=== PATIENT | male | born 1960 | race Caucasian/White ===

== ENCOUNTER 2017-03-04 15:11 | Inpatient (IN) | payer OTHER ==
[~2017-03-04] VITALS: Ht 170.2 cm; Wt 85.3 kg
[~2017-03-04 15:11] MED LIST: CALCTAB5 PO; CRG40 PO; GAS X PO; LSX20 PO; PANT40TA PO; RIFA200T2 PO; SPIR50TA2 PO
[2017-03-04] MEDS ORDERED: SODIUM CHLORIDE 0.9% 1000ML 1,000 ML IV STA (15:22)
--- NOTE | 2017-03-04 15:59 | EMERGENCY ROOM VISIT NOTE ---
History Report prepared by Zack: Genaro Reyes Under the Supervision of: Dr. Martinez Winkler M.D. First contact with patient: 15:19 Chief Complaint: STROKE SYMPTOMS Stated Complaint: NUMBNESS ON RT SIDE History of Present Illness The patient is a 57 year old male who presents to the Emergency Room with complaints of improving right sided numbness starting this morning around 1000. He states that he has right leg, right arm, and the right side of his face was numb, and he denies any pain on that side. The patient states he went up to go to the bathroom, and he thought that he pinched a nerve. He states that he is able to walk normally. The patient has a history of high blood pressure, cirrhosis, and a cholecystectomy. He states that he drinks around 7 beers per night, and his last drink was last night. The patient denies any fevers, chills , cough, and congestion. Source of History: patient Onset: 1000 Position: other (right side) Quality: numbness Timing: other (improving) Associated Symptoms: No fevers, No chills, No cough Note: Associated symptoms: Right leg, right arm, and right face numbness Review of Systems See HPI for pertinent positives and negatives. A total of ten systems were reviewed and were otherwise negative. Past Medical & Surgical Medical Problems: (1) Cirrhosis (2) High blood pressure (3) HTN (hypertension) (4) Hypertensive urgency (5) Paresthesia Surgical Problems: (1) History of cholecystectomy (2) Hx of cholecystectomy Social History Alcohol Use: heavy Marital Status: Housing Status: lives with family Occupation Status: retired Current/Historical Medications Scheduled Atenolol (Tenormin), 100 MG PO DAILY Furosemide (Lasix), 20 MG PO DAILY Potassium (Potassium), 99 MG PO DAILY Allergies Coded Allergies: Iodinated Diagnostic Agents (Verified Allergy, Unknown, [place] like arm was on fire, 03/04/17) Iodine (Verified Allergy, Unknown, 05/26/09) Physical Exam Vital Signs Date Time Temp Pulse Resp B/P (MAP) Pulse Ox O2 Delivery O2 Flow Rate FiO2 03/04/17 18:00 83 25 213/109 99 Room Air 03/04/17 17:25 84 29 211/114 96 Room Air 03/04/17 17:20 84 03/04/17 17:16 258/133 03/04/17 17:10 86 283/131 03/04/17 16:06 90 19 256/139 97 Room Air 03/04/17 15:13 36.9 89 18 247/129 98 Room Air Physical Exam GENERAL: Awake, alert, well-appearing, in no distress HENT: Normocephalic, atraumatic. Oropharynx unremarkable. EYES: Normal conjunctiva. Sclera non-icteric. NECK: Supple. No nuchal rigidity. FROM. No JVD. RESPIRATORY: Clear to auscultation. CARDIAC: Regular rate, normal rhythm. Extremities warm and well perfused. Pulses equal. ABDOMEN: Soft, non-distended. No tenderness to palpation. No rebound or guarding. No masses. RECTAL: Deferred. MUSCULOSKELETAL: Chest examination reveals no tenderness. The back is symmetrical on inspection without obvious abnormality. There is no CVA tenderness to palpation. No joint edema. LOWER EXTREMITIES: Calves are equal size bilaterally and non-tender. No edema. No discoloration. NEURO: Normal sensorium. No sensory or motor deficits noted. 5/5 strength and SILT x 4 ext. Normal cerebellar function with [id number], alternating palms , [id number] SKIN: No rash or jaundice noted. Medical Decision & Procedures ER Provider Diagnostic Interpretation: Radiology results as stated below per my review and radiologist interpretation: CT OF THE HEAD WITHOUT CONTRAST CLINICAL HISTORY: Right arm, leg and face numbness. COMPARISON STUDY: Head CT September 10, 2007 and MRI of the brain September 11, 2007. CT DOSE: 638.56 mGycm TECHNIQUE: Helical axial images of the head were obtained without IV contrast. Automated exposure control was utilized for the study. A dose lowering technique was utilized adhering to the principles of ALARA. FINDINGS: No acute intracranial hemorrhage, midline shift or mass effect is present. Ventricular system is normal. Basilar cisterns are patent. There are no extra-axial collections. There are no CT findings to suggest acute dural sinus thrombosis or acute territorial infarct. There are moderate white matter hypodensities which have increased since exam of September 10, 2007. A 5 mm right thalamic hypodensity is new since prior exam. Visualized portions of the sinuses and mastoid air cells are clear. There are no significant calvarial abnormality. IMPRESSION: 1. No acute intracranial hemorrhage or mass effect. 2. Moderate white matter hypodensities which have increased since head CT of September 10, 2007. These are nonspecific and may reflect small vessel disease although are greater than expected for age. 3. Age indeterminate but likely old lacunar infarct within the right thalamus. Electronically signed by: Davidson Ann M.D. 03/04/2017 4:31 PM Dictated Date/Time: 03/04/2017 4:25 PM CHEST ONE VIEW PORTABLE CLINICAL HISTORY: 57 years-old Male presenting with ABDOMINAL PAIN/GI. TECHNIQUE: Portable upright AP view of the chest was obtained. COMPARISON: 07/10/2007. FINDINGS: Atherosclerosis of aortic arch. Cardiac silhouette normal in size. Lungs and pleural spaces clear. Osseous structures normal. Upper abdomen normal. IMPRESSION: 1. No acute cardiopulmonary disease. Electronically signed by: Teddy Smith M.D. 03/04/2017 5:11 PM Dictated Date/Time: 03/04/2017 5:10 PM Laboratory Results 03/04/17 15:44 Red Blood Count 4.78, Mean Corpuscular Volume 93.3, Mean Corpuscular Hemoglobin 34.1, Mean Corpuscular Hemoglobin Concent 36.5, Mean Platelet Volume 11.3, Neutrophils (%) (Auto) 68.8, Lymphocytes (%) (Auto) 16.9, Monocytes (%) (Auto) 11.0, Eosinophils (%) (Auto) 2.6, Basophils (%) (Auto) 0.5, Neutrophils # (Auto ) 4.18, Lymphocytes # (Auto) 1.03, Monocytes # (Auto) 0.67, Eosinophils # (Auto ) 0.16, Basophils # (Auto) 0.03 03/04/17 15:44 Test 03/04/17 15:44 03/04/17 16:05 White Blood Count 6.08 K/uL (4.8-10.8) Red Blood Count 4.78 M/uL (4.7-6.1) Hemoglobin 16.3 g/dL (14.0-18.0) Hematocrit 44.6 % (42-52) Mean Corpuscular Volume 93.3 fL (80-100) Mean Corpuscular Hemoglobin 34.1 pg (25-34) Mean Corpuscular Hemoglobin Concent 36.5 g/dl (32-36) Platelet Count 98 K/uL (130-400) Mean Platelet Volume 11.3 fL (7.4-10.4) Neutrophils (%) (Auto) 68.8 % Lymphocytes (%) (Auto) 16.9 % Monocytes (%) (Auto) 11.0 % Eosinophils (%) (Auto) 2.6 % Basophils (%) (Auto) 0.5 % Neutrophils # (Auto) 4.18 K/uL (1.4-6.5) Lymphocytes # (Auto) 1.03 K/uL (1.2-3.4) Monocytes # (Auto) 0.67 K/uL (0.11-0.59) Eosinophils # (Auto) 0.16 K/uL (0-0.5) Basophils # (Auto) 0.03 K/uL (0-0.2) RDW Standard Deviation 42.4 fL (36.4-46.3) RDW Coefficient of Variation 12.4 % (11.5-14.5) Immature Granulocyte % (Auto) 0.2 % Immature Granulocyte # (Auto) 0.01 K/uL (0.00-0.02) Platelet Estimate DECREASED Prothrombin Time 12.5 SECONDS (9.0-12.0) Prothromb Time International Ratio 1.2 (0.9-1.1) Anion Gap 10.0 mmol/L (3-11) Estimated GFR () 76.6 Estimated GFR (Non- 66.1 BUN/Creatinine Ratio 7.3 (10-20) Calcium Level 9.3 mg/dl (8.5-10.1) Total Bilirubin 3.7 mg/dl (0.2-1) Direct Bilirubin 1.3 mg/dl (0-0.2) Aspartate Amino Transf (AST/SGOT) 63 U/L (15-37) Alanine Aminotransferase (ALT/SGPT) 29 U/L (12-78) Alkaline Phosphatase 275 U/L (45-117) Ammonia 39.2 umol/L (11-32) Total Protein 6.9 gm/dl (6.4-8.2) Albumin 2.2 gm/dl (3.4-5.0) Triglycerides Level 103 mg/dl (0-150) Cholesterol Level 139 mg/dl (0-200) HDL Cholesterol 61 mg/dl LDL Cholesterol, Calculated 57 mg/dl VLDL Cholesterol, Calculated 21 mg/dl Cholesterol/HDL Ratio 2.3 Lipase 393 U/L (73-393) Thyroid Stimulating Hormone (TSH) 3.000 uIu/ml (0.300-4.500) Ethyl Alcohol mg/dL < 3.0 mg/dl (0-3) Urine Color DK YELLOW Urine Appearance CLEAR (CLEAR) Urine pH 5.0 (4.5-7.5) Urine Specific [place] 1.016 (1.000-1.030) Urine Protein 3+ (NEG) Urine Glucose (UA) NEG (NEG) Urine Ketones NEG (NEG) Urine Occult Blood 2+ (NEG) Urine Nitrite NEG (NEG) Urine Bilirubin NEG (NEG) Urine Urobilinogen NEG (NEG) Urine Leukocyte Esterase NEG (NEG) Urine WBC (Auto) 1-5 /hpf (0-5) Urine RBC (Auto) 10-30 /hpf (0-4) Urine Hyaline Casts (Auto) 1-5 /lpf (0-5) Urine Epithelial Cells (Auto) 5-10 /lpf (0-5) Urine Bacteria (Auto) NEG (NEG) Laboratory results reviewed by me Medications Administered Medications (Trade) Dose Ordered Sig/Jos Route Start Time Stop Time Status Last Admin Dose Admin Sodium Chloride 1,000 ml @ 999 mls/hr Q1H1M STAT IV 03/04/17 15:22 03/04/17 16:22 DC 03/04/17 17:18 999 MLS/HR Labetalol HCl (Normodyne IV) 20 mg NOW STAT IV 03/04/17 16:28 03/04/17 16:30 DC 03/04/17 17:16 20 MG Aspirin (Aspirin Chew) 81 mg ONE STAT PO 03/04/17 18:40 03/04/17 18:44 DC 03/04/17 18:53 81 MG ECG Indication: other (numbness) Rate (beats per minute): 82 Rhythm: normal sinus Findings: no acute ischemic change, other (Normal [place]) ED Course 1519: The patient was evaluated in room C5. A complete history and physical exam was performed. 1522: Sodium Chloride 1000 ml @ 999 mls/hr IV 1628: Labetalol HCl 20mg IV 1735: I reevaluated the patient, and he is feeling better. I discussed the treatment plan with him, and he was agreeable to being evaluated by the hospitalist. 1751: I discussed the patient with Moisés Mcdaniel - he will evaluate the patient for further treatment. Medical Decision I reviewed the patient's past medical history, medications, and the nursing notes as described above. Differential Diagnoses include: Stroke, TIA, radiculopathy, dehydration, electrolyte abnormality, liver disease, and neuropathy The patient is a 57-year-old gentleman with a past medical history of alcoholic cirrhosis, and portal hypertension on Nadolol and rifaximin presents to the emergency department with right leg, arm, face numbness that began this morning around 10 AM per history of present illness. On arrival the patient is in no acute distress, afebrile with significant hypertension with systolic to 250s/ 110s. On arrival patient reports his numbness is mostly resolved although had some residual subjective right leg numbness. Denies any pain associated with this. On exam he has no focal deficits. He is able to ambulate without difficulty but does report some awkwardness with his gait. Patient has a question of a contrast allergy and thus CTA deferred. CT head shows question of an old right thalamic infarct but otherwise no new stroke. Labs otherwise unremarkable. Patient was given labetalol with subsequent reduction in his blood pressure to a systolic of 200s. The patient's symptoms may have been due to his extremely elevated blood pressure, however admission for complete stroke/ tia rule out is appropriate. Case was discussed with Moisés Mcdaniel hospitalist, who would minute the patient for further management. Medication Reconcilliation Current Medication List: was personally reviewed by me Blood Pressure Screening Patient's blood pressure: Elevated blood pressure Managed by the hospitalist Consults Time Called: 1739 Consulting Physician: Moisés Mcdaniel Returned Call: 1751 I discussed the patient with Moisés Mcdaniel - he will evaluate the patient for further treatment. Impression Primary Impression: Numbness Scribe Attestation The scribe's documentation has been prepared under my direction and personally reviewed by me in its entirety. I confirm that the note above accurately reflects all work, treatment, procedures, and medical decision making performed by me. Departure Information Dispostion Being Evaluated By Hospitalist Referrals No Doctor, Assigned (PCP) Patient Instructions My [facility]
[2017-03-04 16:15] LABS: INR 1.2 (0.9-1.1); PROTHROMBIN TIME (PATIENT) 12.5 SECONDS (9.0-12.0)
[2017-03-04 16:20] LABS: ALT/SGPT 29 U/L (12-78); BLOOD UREA NITROGEN 9 mg/dl (7-18); BUN/CREATININE RATIO 7.3 (10-20); CALCIUM 9.3 mg/dl (8.5-10.1); CARBON DIOXIDE 24 mmol/L (21-32); CHLORIDE 106 mmol/L (98-107); CREATININE 1.21 mg/dl (0.60-1.40); GLUCOSE 110 mg/dl (70-99); POTASSIUM 3.8 mmol/L (3.5-5.1); SODIUM 140 mmol/L (136-145)
[2017-03-04 16:23] LABS: URINE APPEARANCE CLEAR (CLEAR); URINE COLOR DK YELLOW; URINE NITRITE NEG (NEG); URINE SPECIFIC GRAVITY 1.016 (1.000-1.030); UROBILINOGEN NEG (NEG); ZZUR CULT IF INDIC CLEAN CATCH NO
[2017-03-04 16:24] LABS: MANUAL MICROSCOPIC REQUIRED? NO; REVIEW REQ? NO
[2017-03-04 16:25] LABS: URINE BILIRUBIN NEG (NEG)
[2017-03-04 16:25] LABS: ALKALINE PHOSPHATASE 275 U/L (45-117); AST/SGOT 63 U/L (15-37)
[2017-03-04 16:26] LABS: HEMATOCRIT 44.6 % (42-52); MEAN CELL VOLUME 93.3 fL (80-100); MEAN CORPUSCULAR HEMOGLOBIN 34.1 pg (25-34); MEAN CORPUSCULAR HGB CONC 36.5 g/dl (32-36); MEAN PLATELET VOLUME 11.3 fL (7.4-10.4); PLATELET COUNT 98 K/uL (130-400); RED BLOOD COUNT 4.78 M/uL (4.7-6.1); WHITE BLOOD COUNT 6.08 K/uL (4.8-10.8)
[2017-03-04] MEDS ORDERED: LABETALOL HCL IV 5 MG/ML 20ML IV STA (16:28)
--- NOTE | 2017-03-04 16:33 | DIAGNOSTIC IMAGING REPORT ---
CT OF THE HEAD WITHOUT CONTRAST CLINICAL HISTORY: Right arm, leg and face numbness. COMPARISON STUDY: Head CT September 10, 2007 and MRI of the brain September 11, 2007. CT DOSE: 638.56 mGycm TECHNIQUE: Helical axial images of the head were obtained without IV contrast. Automated exposure control was utilized for the study. A dose lowering technique was utilized adhering to the principles of ALARA. FINDINGS: No acute intracranial hemorrhage, midline shift or mass effect is present. Ventricular system is normal. Basilar cisterns are patent. There are no extra-axial collections. There are no CT findings to suggest acute dural sinus thrombosis or acute territorial infarct. There are moderate white matter hypodensities which have increased since exam of September 10, 2007. A 5 mm right thalamic hypodensity is new since prior exam. Visualized portions of the sinuses and mastoid air cells are clear. There are no significant calvarial abnormality. IMPRESSION: 1. No acute intracranial hemorrhage or mass effect. 2. Moderate white matter hypodensities which have increased since head CT of September 10, 2007. These are nonspecific and may reflect small vessel disease although are greater than expected for age. 3. Age indeterminate but likely old lacunar infarct within the right thalamus. Electronically signed by: Davidson Ann M.D. 03/04/2017 4:31 PM Dictated Date/Time: 03/04/2017 4:25 PM
[2017-03-04 16:55] LABS: BASO % 0.5 %; BASO ABS # 0.03 K/uL (0-0.2); COMPLETE YES; EOS % 2.6 %; IG% 0.2 %; LYMPH % 16.9 %; LYMPH ABS # 1.03 K/uL (1.2-3.4); NEUT % 68.8 %; PLT ESTIMATE DECREASED
[2017-03-04] MEDS ORDERED: POTA99TA PO (17:11)
[2017-03-04] MEDS ORDERED: FURO-85 PO (17:11)
[2017-03-04] MEDS ORDERED: ATEN50TA8 PO (17:11)
--- NOTE | 2017-03-04 17:12 | DIAGNOSTIC IMAGING REPORT ---
CHEST ONE VIEW PORTABLE CLINICAL HISTORY: 57 years-old Male presenting with ABDOMINAL PAIN/GI. TECHNIQUE: Portable upright AP view of the chest was obtained. COMPARISON: 07/10/2007. FINDINGS: Atherosclerosis of aortic arch. Cardiac silhouette normal in size. Lungs and pleural spaces clear. Osseous structures normal. Upper abdomen normal. IMPRESSION: 1. No acute cardiopulmonary disease. Electronically signed by: Teddy Smith M.D. 03/04/2017 5:11 PM Dictated Date/Time: 03/04/2017 5:10 PM
[2017-03-04] MEDS ORDERED: ASPIRIN 81 MG CHEW PO STA (18:40)
[2017-03-04] MEDS ORDERED: ACETAMINOPHEN 325 MG TAB PO PRN (19:00)
[2017-03-04] MEDS ORDERED: PHARMACIST DISCHARGE MED REC CONSULT PRN ×3 (19:00→19:15)
[2017-03-04 19:17] LABS: CHOLESTEROL/HDL RATIO 2.3
[2017-03-04] MEDS ORDERED: LORAZEPAM 1 MG TAB PO PRN (19:30)
[2017-03-04 19:57] VITALS: BP 258/119; PULSE 89; TEMP 36.8; O2SAT 99; Ht 170.2 cm; Wt 85.3 kg
--- NOTE | 2017-03-04 20:04 | DIAGNOSTIC IMAGING REPORT ---
CAROTID DOPPLER NECK ART CLINICAL HISTORY: 57 years-old Male presenting with possible TIA. TECHNIQUE: Real-time grayscale and color and spectral Doppler ultrasound imaging of the bilateral carotid arteries was performed. NASCET criteria was used in evaluating this study. COMPARISON: None. FINDINGS: Right: Common carotid: Patent. Peak systolic velocity 77 cm/s. Internal carotid artery: Patent. Peak systolic velocity 46 cm/s. Systolic ratio: 0.6. External carotid artery: Patent. Peak systolic velocity 82 cm/s. Left: Common carotid: Patent. Peak systolic velocity 96 cm/s. Internal carotid artery: Patent. Peak systolic velocity 42 cm/s. Systolic ratio: 0.44. External carotid artery: Patent. Peak systolic velocity 73 cm/s. Bilateral antegrade flow within the vertebral arteries. Reference ranges: Stenosis measurements are compared to reference velocity parameters. Normal ICA peak systolic velocity less than 125 cm/s. Normal ICA peak systolic velocity to common carotid artery velocity ratio is less than 2: less than 2 equates to less than 50% stenosis, 2-4 equates to 50-69% stenosis, greater than 4 equates to greater than or equal to 70% stenosis. Normal ICA end-diastolic velocity less than 40. Blood pressure Brachial: Right: 222/108 mmHg, Left: 237/108 mmHg. IMPRESSION: 1. No hemodynamically significant stenosis seen within the carotid arteries. 2. Significantly elevated blood pressure. The report will be called/faxed according to standard departmental protocol. Electronically signed by: Teddy Smith M.D. 03/04/2017 8:03 PM Dictated Date/Time: 03/04/2017 8:01 PM
--- NOTE | 2017-03-04 20:13 | History and Physical ---
History & Physical Date & Time of Service: Mar 04, 2017 at 19:15 Chief Complaint: Numbness On Rt Side Primary Care Physician: No Doctor, Assigned History of Present Illness Source: patient, spouse Pt is 57yo M with PMH HTN, alcoholic cirrhosis who presented to ER with c/o R arm and R leg paresthesias started this morning around 10:00. States intense paresthesias lasted 1-2 minutes, but has continued with faint paresthesias. Reports started feeling in his R leg and then R arm. Reports paresthesias to entire R leg and entire R arm, hand & fingers. Denies any injury/trauma or prolonged sitting/lying on R side. Denies weakness of extremities. Reports hx HTN and typically "170-190's systolic, 90 diastolic". States takes atenolol 100mg daily and lasix 20mg daily and OTC potassium supplement. [facility] and states in past PCP discussed HTN med changes but pt has been resistant. Pt reports drinks 3-7 beers daily. Hasn't drank ETOH today. Denies other drug use. Denies fever/chills, diaphoresis, N/V/D/C, TORRES, dizziness, syncope, vision changes, neck pain, back pain, speech changes, memory problems, facial drooping , trouble with gait, LOC, CP, SOB, orthopnea, palpitations, cough, sore throat, choking, otalgia, rhinorrhea, abdominal pain, extremity edema, rashes, urinary symptoms. In ER BP initially 256/139 given labetalol 20mg IV and BP 213/109. P:90, R:20, pulse ox:97% on RA. Afebrile. No leukocytosis. ETOH <3. No leukocytosis. Negative troponin. CXR: negative. CT head: no acute hemorrhage, Age indeterminate but likely old lacunar infarct within the right thalamus. 2008: pt with hx alcoholic hepatitis, gallstone pancreatitis with variceal bleed , cholecystectomy and then hx seizure. Family History FH: cancer MOTHER (abdominal (pt unsure source)) Hypertension FATHER BROTHER Social History Smoking Status: Never Smoker Smokeless Tobacco Use: Yes Alcohol Use: 3-7 beers daily Drug Use: none Marital Status: Housing status: lives with significant other Occupational Status: retired Immunizations History of Influenza Vaccine: No History of Tetanus Vaccine?: Yes Tetanus Immunization Date: Jun 11, 2006 History of Pneumococcal: Yes Pneumococcal Date: Jun 11, 2006 History of Hepatitis B Vaccine: No Multi-Drug Resistant Organisms History of MDRO: No Allergies Coded Allergies: Iodinated Diagnostic Agents (Verified Allergy, Unknown, Cook Sta like arm was on fire, 03/04/17) Iodine (Verified Allergy, Unknown, 05/26/09) Home Medications Scheduled Atenolol (Tenormin), 100 MG PO DAILY Furosemide (Lasix), 20 MG PO DAILY Potassium (Potassium), 99 MG PO DAILY Review of Systems See HPI for pertinent positives & negatives. All other systems reviewed and were otherwise negative Physical Exam Vital Signs Date Time Temp Pulse Resp B/P (MAP) Pulse Ox O2 Delivery O2 Flow Rate FiO2 03/04/17 18:00 83 25 213/109 99 Room Air 03/04/17 17:25 84 29 211/114 96 Room Air 03/04/17 17:20 84 03/04/17 17:16 258/133 03/04/17 17:10 86 283/131 03/04/17 16:06 90 19 256/139 97 Room Air 03/04/17 15:13 36.9 89 18 247/129 98 Room Air General Appearance: WD/WN, no apparent distress Head: normocephalic, atraumatic Eyes: normal inspection, PERRL, EOMI, sclerae normal ENT: hearing grossly normal, pharynx normal Neck: supple, no JVD, no carotid bruits, trachea midline, + pertinent finding ( non-tender, ROM intact) Respiratory/Chest: lungs clear, normal breath sounds, no respiratory distress, no accessory muscle use Cardiovascular: regular rate, rhythm, no edema, no murmur Abdomen/GI: normal bowel sounds, non tender, soft Extremities/Musculoskelatal: normal inspection, normal capillary refill, no pedal edema, normal range of motion, non-tender, + pertinent finding (strength 5 /5 throughout bilaterally. 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, no motor/sensory deficits, alert, normal mood/affect, oriented x 3, + pertinent finding (no facial drooping, no aphasia, no weakness) Skin: normal color, warm/dry, no rash Diagnostics Laboratory Results Results Past 24 Hours Test 03/04/17 15:44 03/04/17 16:05 Range/Units White Blood Count 6.08 4.8-10.8 K/uL Red Blood Count 4.78 4.7-6.1 M/uL Hemoglobin 16.3 14.0-18.0 g/dL Hematocrit 44.6 42-52 % Mean Corpuscular Volume 93.3 80-100 fL Mean Corpuscular Hemoglobin 34.1 25-34 pg Mean Corpuscular Hemoglobin Concent 36.5 32-36 g/dl Platelet Count 98 130-400 K/uL Mean Platelet Volume 11.3 7.4-10.4 fL Neutrophils (%) (Auto) 68.8 % Lymphocytes (%) (Auto) 16.9 % Monocytes (%) (Auto) 11.0 % Eosinophils (%) (Auto) 2.6 % Basophils (%) (Auto) 0.5 % Neutrophils # (Auto) 4.18 1.4-6.5 K/uL Lymphocytes # (Auto) 1.03 1.2-3.4 K/uL Monocytes # (Auto) 0.67 0.11-0.59 K/uL Eosinophils # (Auto) 0.16 0-0.5 K/uL Basophils # (Auto) 0.03 0-0.2 K/uL RDW Standard Deviation 42.4 36.4-46.3 fL RDW Coefficient of Variation 12.4 11.5-14.5 % Immature Granulocyte % (Auto) 0.2 % Immature Granulocyte # (Auto) 0.01 0.00-0.02 K/uL Platelet Estimate DECREASED Prothrombin Time 12.5 9.0-12.0 SECONDS Prothromb Time International Ratio 1.2 0.9-1.1 Sodium Level 140 136-145 mmol/L Potassium Level 3.8 3.5-5.1 mmol/L Chloride Level 106 98-107 mmol/L Carbon Dioxide Level 24 21-32 mmol/L Anion Gap 10.0 3-11 mmol/L Blood Urea Nitrogen 9 7-18 mg/dl Creatinine 1.21 0.60-1.40 mg/dl Estimated GFR () 76.6 Estimated GFR (Non- 66.1 BUN/Creatinine Ratio 7.3 10-20 Random Glucose 110 70-99 mg/dl Calcium Level 9.3 8.5-10.1 mg/dl Total Bilirubin 3.7 0.2-1 mg/dl Direct Bilirubin 1.3 0-0.2 mg/dl Aspartate Amino Transf (AST/SGOT) 63 15-37 U/L Alanine Aminotransferase (ALT/SGPT) 29 12-78 U/L Alkaline Phosphatase 275 45-117 U/L Ammonia 39.2 11-32 umol/L Troponin I < 0.015 0-0.045 ng/ml Total Protein 6.9 6.4-8.2 gm/dl Albumin 2.2 3.4-5.0 gm/dl Lipase 393 73-393 U/L Ethyl Alcohol mg/dL < 3.0 0-3 mg/dl Urine Color DK YELLOW Urine Appearance CLEAR CLEAR Urine pH 5.0 4.5-7.5 Urine Specific [place] 1.016 1.000-1.030 Urine Protein 3+ NEG Urine Glucose (UA) NEG NEG Urine Ketones NEG NEG Urine Occult Blood 2+ NEG Urine Nitrite NEG NEG Urine Bilirubin NEG NEG Urine Urobilinogen NEG NEG Urine Leukocyte Esterase NEG NEG Urine WBC (Auto) 1-5 0-5 /hpf Urine RBC (Auto) 10-30 0-4 /hpf Urine Hyaline Casts (Auto) 1-5 0-5 /lpf Urine Epithelial Cells (Auto) 5-10 0-5 /lpf Urine Bacteria (Auto) NEG NEG Diagnostic Radiology CXR: IMPRESSION: 1. No acute cardiopulmonary disease. HEAD CT: 1. No acute intracranial hemorrhage or mass effect. 2. Moderate white matter hypodensities which have increased since head CT of September 10, 2007. These are nonspecific and may reflect small vessel disease although are greater than expected for age. 3. Age indeterminate but likely old lacunar infarct within the right thalamus. EKG EKG: NSR, rate 82, no ST elevations noted Impression Assessment and Plan HTN EMERGENCY Initial BP 256/139 decreased to 213/109 after labetalol 20mg IV given in ER. Paresthesias to RLE, RUE. EKG: NSR rate 82, negative CXR. CT head: no acute hemorrhage, white matter hypodensities, likely old lacunar infarct R thalamus -continue to monitor -amlodipine 5mg HS and 5mg in am -continue atenolol and lasix -ASA -fasting lipids -A1c -repeat troponin -cbc, cmp in am PARESTHESIAS RUE & RLE Paresthesias started 10:00 this am, decreased in intensity after approx 2 minutes. DDX: TIA -continue to monitor -check TSH -neuro checks -statin -u/s carotids -repeat head CT tomorrow -neuro consult -may consider MRI ETOH ABUSE/HX ALCOHOLIC CIRRHOSIS: no withdrawal symptoms currently. A&O x 3. AST: 63, ALT: 29, Alk phos:275, Total bili: 3.7, direct bili:1.3. Denies any abdominal pain. -Ativan prn -cmp in am DVT PROPHYLAXIS -SCD's DISPOSITION -admit tele -Full Code -[facility]s [facility] for routine care Pt was seen with Dr Gracia. See addendum I have seen and examined the patient with our hospitalist's team physician business support assistant and agree with the assessment and plan. This is a 57 year old M with history of hypertension on 100 mg of atenolol only for blood pressure medication at home which is prescribed by his outpatient [facility] doctor. Had acutely experienced 1 to 2 minutes of right sided tingling without motor deficits. On exam at bedside, patient reports that tingling sensation still present however normal neurological exam and no acute CT head findings for stroke. Given aspirin. Will repeat head CT in the AM of 03/05/17. Will have carotid ultrasound performed. Neurology consult requested for symptoms of TIA vs hypertensive emergency. Patient's blood pressure on presentation 283/131 with subsequent decrease to 211/114 after ED physician gave labetalol 20 mg IV. Will add amlodipine 5 mg tonight and add amlodipine to home atenolol medication. Likely will need blood pressure medication titrated up. Is on telemetry monitoring. Level of Care Telemetry Resuscitation Status FULL RESUSCITATION VTE Prophylaxis VTE Risk Assessment Done? Y/N: Yes Risk Level: Moderate Given or contraindicated: SCD's Additional Copies To Bakari Downey M.D.
[2017-03-04] MEDS ORDERED: AMLODIPINE BESYLATE 5 MG TAB PO ONE (21:00)
[2017-03-04] MEDS ORDERED: INFLUENZA ADMINISTRATION CHARGE ONE (22:00)
[2017-03-04] MEDS ORDERED: INFLUENZA VIRUS QUAD VACCINE 0.5 ML SYR IM. ONE (22:00)
[2017-03-04 22:29] VITALS: BP 195/94
[2017-03-04 23:34] VITALS: BP 171/83; PULSE 89; TEMP 37.1; O2SAT 97
[2017-03-05] VITALS (7 sets, daily range): BP systolic 152–207; BP diastolic 82–110; PULSE 57–85; TEMP 36.7–37; O2SAT 95–98
[2017-03-05 06:23] LABS: ESTIMATED AVERAGE GLUCOSE 91 mg/dl; HA1C FLAG Normal (Normal)
[2017-03-05 06:49] LABS: HEMATOCRIT 38.8 % (42-52); MEAN CELL VOLUME 94.9 fL (80-100); MEAN CORPUSCULAR HGB CONC 35.8 g/dl (32-36); RED BLOOD COUNT 4.09 M/uL (4.7-6.1); WHITE BLOOD COUNT 4.66 K/uL (4.8-10.8)
[2017-03-05 07:14] LABS: MEAN PLATELET VOLUME 11.5 fL (7.4-10.4); PLATELET COUNT 71 K/uL (130-400)
[2017-03-05 07:23] LABS: BASO % 0.6 %; BASO ABS # 0.03 K/uL (0-0.2); COMPLETE YES; EOS % 3.6 %; HYPERSEGMENTED POLYS 1+; IG% 0.2 %; LYMPH % 18.2 %; LYMPH ABS # 0.85 K/uL (1.2-3.4); MONO % 13.5 %; NEUT % 63.9 %; TOXIC GRANULATION 1+
[2017-03-05 07:30] LABS: BUN/CREATININE RATIO 9.6 (10-20); CALCIUM 8.2 mg/dl (8.5-10.1); CREATININE 1.07 mg/dl (0.60-1.40); POTASSIUM 3.6 mmol/L (3.5-5.1)
[2017-03-05] MEDS: ATORVASTATIN 10 MG TAB PO SCH (07:30)
[2017-03-05] MEDS: AMLODIPINE BESYLATE 5 MG TAB PO SCH (07:31)
[2017-03-05 07:37] LABS: ALB/GLOB RATIO 0.5 (0.9-2)
--- NOTE | 2017-03-05 08:27 | DIAGNOSTIC IMAGING REPORT ---
CT OF THE HEAD WITHOUT CONTRAST CLINICAL HISTORY: Evaluate for evolving stroke. COMPARISON STUDY: Head CT March 04, 2017. CT DOSE: 537.48 mGy.cm TECHNIQUE: Helical axial images of the head were obtained without IV contrast. Automated exposure control was utilized for the study. A dose lowering technique was utilized adhering to the principles of ALARA. FINDINGS: No acute intracranial hemorrhage, midline shift or mass effect is present. A 1.3 cm hypodensity within the left internal capsule and anterior thalamus is now noted. This is more conspicuous than on prior exam. There is basal ganglia calcification. Basilar cisterns are patent. There are no extra axial collections. White matter hypodensity suggests small vessel disease. There are no significant calvarial abnormalities. Visualized portions of the sinuses and mastoid air cells are clear. IMPRESSION: Interval development of a 1.3 cm hypodensity within the anterior left thalamus and internal capsule which suggests a small acute infarct. No hemorrhage or mass effect. Electronically signed by: Davidson Ann M.D. 03/05/2017 8:26 AM Dictated Date/Time: 03/05/2017 8:14 AM
[2017-03-05] MEDS ORDERED: FUROSEMIDE 20 MG TAB PO SCH (09:00)
[2017-03-05 10:38] LABS: HEMATOCRIT 41.8 % (42-52); MEAN CELL VOLUME 96.3 fL (80-100); MEAN CORPUSCULAR HEMOGLOBIN 34.1 pg (25-34); MEAN CORPUSCULAR HGB CONC 35.4 g/dl (32-36); RED BLOOD COUNT 4.34 M/uL (4.7-6.1); WHITE BLOOD COUNT 6.09 K/uL (4.8-10.8)
[2017-03-05] MEDS ORDERED: CLONIDINE HCL 0.1 MG TAB PO PRN (10:45)
[2017-03-05] MEDS ORDERED: GABAPENTIN 600 MG TAB PO SCH (10:45)
[2017-03-05] MEDS ORDERED: PHARMACIST DISCHARGE MED REC CONSULT PRN (10:45)
[2017-03-05] MEDS ORDERED: LORAZEPAM 1 MG TAB PO PRN (10:45)
[2017-03-05 10:54] LABS: MEAN PLATELET VOLUME 11.1 fL (7.4-10.4); PLATELET COUNT 73 K/uL (130-400)
--- NOTE | 2017-03-05 10:59 | Progress Note ---
Medicine Progress Note Date & Time of Visit: Mar 05, 2017 at 10:51. Subjective patient seen sitting up in bedside chair states his right lower face, right arm/hand, right lower extremity paresthesias has improved since yesterday slurred speech also improving no other new deficits denies headache, dizziness, nausea, chest pain, dyspnea denies anxiety, sweating, tremors no other symptoms Objective Last 8 Hrs Date Time Temp Pulse Resp B/P (MAP) Pulse Ox O2 Delivery O2 Flow Rate FiO2 03/05/17 09:13 152/82 (105) 03/05/17 08:00 Room Air 03/05/17 07:23 37.0 83 18 207/110 (142) 98 Room Air 03/05/17 04:19 36.7 85 18 174/88 (116) 98 Room Air 03/05/17 04:00 Room Air Physical Exam: General- oriented x 3, not in distress, speaks in sentences with no effort Head- atraumatic Eyes- PERRL, EOMI, anicteric ENT- oropharynx clear Neck- supple, no JVD, no adenopathy, no thyromegaly; carotids +2/2, no bruits appreciated Lungs- clear to auscultation bilaterally Heart- regular rhythm; no murmur, normal rate Abdomen- normal bowel sounds, soft, nontender Extremities- no pretibial edema, no calf tenderness; peripheral pulses intact Neuro- alert, oriented x 3; PERRL, EOMI; no facial palsy; no dysarthria; motor 5 /5 bilaterally; sensation 100% on all ext Skin- warm & dry Laboratory Results: Last 24 Hours Test 03/04/17 15:44 03/04/17 16:05 03/04/17 22:10 03/05/17 06:28 White Blood Count 6.08 K/uL 4.66 K/uL Red Blood Count 4.78 M/uL 4.09 M/uL Hemoglobin 16.3 g/dL 13.9 g/dL Hematocrit 44.6 % 38.8 % Mean Corpuscular Volume 93.3 fL 94.9 fL Mean Corpuscular Hemoglobin 34.1 pg 34.0 pg Mean Corpuscular Hemoglobin Concent 36.5 g/dl 35.8 g/dl Platelet Count 98 K/uL 71 K/uL Mean Platelet Volume 11.3 fL 11.5 fL Neutrophils (%) (Auto) 68.8 % 63.9 % Lymphocytes (%) (Auto) 16.9 % 18.2 % Monocytes (%) (Auto) 11.0 % 13.5 % Eosinophils (%) (Auto) 2.6 % 3.6 % Basophils (%) (Auto) 0.5 % 0.6 % Neutrophils # (Auto) 4.18 K/uL 2.97 K/uL Lymphocytes # (Auto) 1.03 K/uL 0.85 K/uL Monocytes # (Auto) 0.67 K/uL 0.63 K/uL Eosinophils # (Auto) 0.16 K/uL 0.17 K/uL Basophils # (Auto) 0.03 K/uL 0.03 K/uL RDW Standard Deviation 42.4 fL 43.8 fL RDW Coefficient of Variation 12.4 % 12.7 % Immature Granulocyte % (Auto) 0.2 % 0.2 % Immature Granulocyte # (Auto) 0.01 K/uL 0.01 K/uL Platelet Estimate DECREASED Prothrombin Time 12.5 SECONDS Prothromb Time International Ratio 1.2 Sodium Level 140 mmol/L 143 mmol/L Potassium Level 3.8 mmol/L 3.6 mmol/L Chloride Level 106 mmol/L 109 mmol/L Carbon Dioxide Level 24 mmol/L 25 mmol/L Anion Gap 10.0 mmol/L 9.0 mmol/L Blood Urea Nitrogen 9 mg/dl 10 mg/dl Creatinine 1.21 mg/dl 1.07 mg/dl Estimated GFR () 76.6 88.8 Estimated GFR (Non- 66.1 76.7 BUN/Creatinine Ratio 7.3 9.6 Random Glucose 110 mg/dl 87 mg/dl Estimated Average Glucose 91 mg/dl Hemoglobin A1c 4.8 % Calcium Level 9.3 mg/dl 8.2 mg/dl Total Bilirubin 3.7 mg/dl 2.8 mg/dl Direct Bilirubin 1.3 mg/dl Aspartate Amino Transf (AST/SGOT) 63 U/L 44 U/L Alanine Aminotransferase (ALT/SGPT) 29 U/L 22 U/L Alkaline Phosphatase 275 U/L 191 U/L Ammonia 39.2 umol/L Troponin I < 0.015 ng/ml 0.019 ng/ml Total Protein 6.9 gm/dl 5.4 gm/dl Albumin 2.2 gm/dl 1.8 gm/dl Triglycerides Level 103 mg/dl Cholesterol Level 139 mg/dl HDL Cholesterol 61 mg/dl LDL Cholesterol, Calculated 57 mg/dl VLDL Cholesterol, Calculated 21 mg/dl Cholesterol/HDL Ratio 2.3 Lipase 393 U/L Thyroid Stimulating Hormone (TSH) 3.000 uIu/ml Ethyl Alcohol mg/dL < 3.0 mg/dl Urine Color DK YELLOW Urine Appearance CLEAR Urine pH 5.0 Urine Specific [place] 1.016 Urine Protein 3+ Urine Glucose (UA) NEG Urine Ketones NEG Urine Occult Blood 2+ Urine Nitrite NEG Urine Bilirubin NEG Urine Urobilinogen NEG Urine Leukocyte Esterase NEG Urine WBC (Auto) 1-5 /hpf Urine RBC (Auto) 10-30 /hpf Urine Hyaline Casts (Auto) 1-5 /lpf Urine Epithelial Cells (Auto) 5-10 /lpf Urine Bacteria (Auto) NEG Hypersegmented Polys 1+ Toxic Granulation 1+ Est Creatinine Clear Calc Drug Dose 79.4 ml/min Globulin 3.6 gm/dl Albumin/Globulin Ratio 0.5 Hepatitis C Antibody Screen NEG Test 03/05/17 10:30 03/05/17 10:44 White Blood Count 6.09 K/uL Red Blood Count 4.34 M/uL Hemoglobin 14.8 g/dL Hematocrit 41.8 % Mean Corpuscular Volume 96.3 fL Mean Corpuscular Hemoglobin 34.1 pg Mean Corpuscular Hemoglobin Concent 35.4 g/dl RDW Standard Deviation 44.6 fL RDW Coefficient of Variation 12.8 % Assessment & Plan 57 year old male with history of HTN, Alcoholism, presenting with right sided numbness and paresthesias. ACUTE CVA, LEFT THALAMUS AND INTERNAL CAPSULE - CT head: IMPRESSION: Interval development of a 1.3 cm hypodensity within the anterior left thalamus and internal capsule which suggests a small acute infarct. No hemorrhage or mass effect. Doppler of the Carotids: Negative - Neurology consulted further imaging studies per Neuro - received Aspirin yesterday Plt level 71 today, will hold off on ASA, will discuss with Neurology Atorvastatin 10mg daily started, need to monitor LFTs HTN EMERGENCY Initial BP 256/139 decreased to 213/109 after labetalol 20mg IV given in ER. Paresthesias to RLE, RUE. EKG: NSR rate 82, negative CXR. CT head: no acute hemorrhage, white matter hypodensities, likely old lacunar infarct R thalamus - added amlodipine 5mg HS and 5mg in am -continue atenolol and lasix BP improving will avoid drastic reduction in BP in light of acute CVA, goal for syst BP 140- 160 add PRN Clonidine THROMBOCYTOPENIA - chronic likely from Alcohol Abuse - hold ASA today no signs of bleeding will monitor ETOH ABUSE/HX ALCOHOLIC CIRRHOSIS: no withdrawal symptoms currently. A&O x 3. AST: 63, ALT: 29, Alk phos:275, Total bili: 3.7, direct bili:1.3. Denies any abdominal pain. - Alcohol Withdrawal protocol ordered including Gabapentin taper, Ativan PRN and Banana Bag - monitor HISTORY OF LIVER CIRRHOSIS - likely from Alcohol - LFTs seem to be within baseline - monitor MICROSCOPIC HEMATURIA - will need repeat UA DVT PROPHYLAXIS -SCD's DISPOSITION - PT/OT in progress -[facility] with [facility] for [facility] care Current Inpatient Medications: Current Inpatient Medications Medications (Trade) Dose Ordered Sig/Jos Route Start Time Stop Time Status Last Admin Dose Admin Miscellaneous Information (Pharmacist Discharge Med Rec Consult) 1 ea UD PRN N/A 03/04/17 19:00 04/03/17 18:59 Acetaminophen (Tylenol Tab) 650 mg Q4H PRN PO 03/04/17 19:00 04/03/17 18:59 Amlodipine Besylate (Norvasc Tab) 5 mg QAM PO 03/05/17 09:00 04/04/17 08:59 03/05/17 07:31 5 MG Atenolol (Tenormin Tab) 100 mg DAILY PO 03/05/17 09:00 04/04/17 08:59 03/05/17 07:31 100 MG Atorvastatin Calcium (Lipitor Tab) 10 mg QAM PO 03/05/17 09:00 04/04/17 08:59 03/05/17 07:30 10 MG Lorazepam (Ativan Tab) 1 mg Q6 PRN PO 03/04/17 19:30 04/03/17 19:29 03/05/17 07:29 1 MG Clonidine HCl (Catapres Tab) 0.1 mg Q6H PRN PO 03/05/17 10:45 04/04/17 10:44 Lorazepam (Ativan Tab) 1 mg ONE PRN PO 03/05/17 10:45 UNV Gabapentin (Neurontin Tab) 1,200 mg SEE PROTOCOL TEXT PO 03/05/17 10:45 04/04/17 10:44 UNV Multivitamins 10 ml/Thiamine HCl 100 mg/Folic Acid 1 mg/Sodium Chloride 1,011.2 ml @ 60 mls/hr DAILY IV 03/06/17 09:00 04/05/17 08:59 UNV
[2017-03-05] MEDS ORDERED: GABAPENTIN 1200MG LOADING DOSE PO ONE (11:00)
[2017-03-05 11:01] LABS: BASO % 0.5 %; BASO ABS # 0.03 K/uL (0-0.2); COMPLETE YES; EOS % 3.9 %; IG% 0.2 %; LYMPH % 12.8 %; LYMPH ABS # 0.78 K/uL (1.2-3.4); MONO % 9.9 %; NEUT % 72.7 %; TOXIC GRANULATION 1+; VACUOLIZATION 1+
[2017-03-05] MEDS: MULTI-VITAMIN INFUSION INJ 10 ML, THIAMINE HCL INJ 100 MG, FoLIC ACID INJ 1 MG in SODIU... IV SCH (11:16)
[2017-03-05] MEDS ORDERED: ASPIRIN 81 MG ECTAB PO STA (14:38)
--- NOTE | 2017-03-05 14:40 | Neurology Consultation ---
Neurology Consultation Date of Consultation: Mar 05, 2017. Attending Physician: Zbigniew Martinez MD Primary Care Physician: No Doctor, Assigned Reason for Consultation: HTN/paresthesia History of Present Illness Source: patient, spouse Cholo is 57yo M with PMH HTN, alcoholic cirrhosis, past history of variceal bleed, gallstone pancreatitis, and seizure who presented to ER with c/o R arm and R leg paresthesias started this morning around 10:00. The intense paresthesias lasted 1-2 minutes, but has continued with faint paresthesias. The paresthesias marched up his leg from his foot to his trunk and arm and hand and then up his neck to his chin and lips. His is in the room and states his speech is a little slurred. He has a history of HTN and typically "170-190's systolic, 90 diastolic". He states he was prescribed atenolol 100mg daily and lasix 20mg daily and OTC potassium supplement and he states he does take them daily. [facility] and states in past PCP discussed HTN med changes but pt has been resistant. He drinks 3-7 beers daily. Denies fever/chills, diaphoresis, N/V/D/C, TORRES, dizziness, syncope, vision changes, neck pain, back pain, speech changes, memory problems, facial drooping, trouble with gait, LOC, CP, SOB,falls or head injury. On arrival in ED his blood pressure was 256/139 ETOH <3. CT head: no acute hemorrhage, Age indeterminate but likely old lacunar infarct within the right thalamus. Past Medical/Surgical History Medical Problems: (1) Numbness Status: Acute Social History Smokeless Tobacco Use: Yes Alcohol Use: heavy Drug Use: none Marital Status: Housing Status: lives with family Occupation Status: retired Allergies Coded Allergies: Iodinated Diagnostic Agents (Verified Allergy, Unknown, Addison like arm was on fire, 03/04/17) Iodine (Verified Allergy, Unknown, 05/26/09) Current Inpatient Medications Current Inpatient Medications Medications (Trade) Dose Ordered Sig/Jos Route Start Time Stop Time Status Last Admin Dose Admin Miscellaneous Information (Pharmacist Discharge Med Rec Consult) 1 ea UD PRN N/A 03/04/17 19:00 04/03/17 18:59 Acetaminophen (Tylenol Tab) 650 mg Q4H PRN PO 03/04/17 19:00 04/03/17 18:59 Amlodipine Besylate (Norvasc Tab) 5 mg QAM PO 03/05/17 09:00 04/04/17 08:59 03/05/17 07:31 5 MG Atenolol (Tenormin Tab) 100 mg DAILY PO 03/05/17 09:00 04/04/17 08:59 03/05/17 07:31 100 MG Atorvastatin Calcium (Lipitor Tab) 10 mg QAM PO 03/05/17 09:00 04/04/17 08:59 03/05/17 07:30 10 MG Lorazepam (Ativan Tab) 1 mg Q6 PRN PO 03/04/17 19:30 04/03/17 19:29 03/05/17 07:29 1 MG Clonidine HCl (Catapres Tab) 0.1 mg Q6H PRN PO 03/05/17 10:45 04/04/17 10:44 Lorazepam (Ativan Tab) 1 mg ONE PRN PO 03/05/17 10:45 Multivitamins 10 ml/Thiamine HCl 100 mg/Folic Acid 1 mg/Sodium Chloride 1,011.2 ml @ 60 mls/hr DAILY@1100 IV 03/05/17 11:00 04/04/17 10:59 03/05/17 11:16 60 MLS/HR Gabapentin (Neurontin Tab) 600 mg Q6H PO 03/05/17 18:00 03/06/17 00:01 Gabapentin (Neurontin Tab) 600 mg Q8H PO 03/06/17 08:00 03/07/17 00:01 Gabapentin (Neurontin Tab) 600 mg Q12H PO 03/07/17 12:00 03/08/17 00:01 Gabapentin (Neurontin Tab) 600 mg Q24H PO 03/09/17 00:00 03/09/17 00:01 Physical Exam Vital Signs (Past 24 Hrs): Date Time Temp Pulse Resp B/P (MAP) Pulse Ox O2 Delivery O2 Flow Rate FiO2 03/05/17 12:00 Room Air 03/05/17 10:58 36.8 74 19 168/94 (118) 96 Room Air 03/05/17 09:13 152/82 (105) 03/05/17 08:00 Room Air 03/05/17 07:23 37.0 83 18 207/110 (142) 98 Room Air 03/05/17 04:19 36.7 85 18 174/88 (116) 98 Room Air 03/05/17 04:00 Room Air 03/04/17 23:59 Room Air 03/04/17 23:34 37.1 89 20 171/83 (112) 97 Room Air 03/04/17 22:29 195/94 (127) 03/04/17 19:57 36.8 89 17 258/119 99 Room Air 03/04/17 19:20 82 20 223/110 98 Room Air 03/04/17 18:00 83 25 213/109 99 Room Air 03/04/17 17:25 84 29 211/114 96 Room Air 03/04/17 17:20 84 03/04/17 17:16 258/133 03/04/17 17:10 86 283/131 03/04/17 16:06 90 19 256/139 97 Room Air 03/04/17 15:13 36.9 89 18 247/129 98 Room Air Physical Exam: Constitutional: appearance nourished, healthy and normal Ears, Nose, Mouth and Throat: mucous membranes moist, no injection and skin normal, eyes normal Cardiovascular: normal S-1 and S-2 and regular rate and rhythm Respiratory: clear to auscultation (CTA) and no rales, rhonchi or wheeze Musculoskeletal: no peripheral edema and good distal pulses Skin: no stigmata of neurocutaneous disease noted and normal and intact Eyes: extraocular muscles intact (EOMI) and pupils equal, round and reactive to light (PERRL) NEUROLOGIC EXAMINATION: Mental status: Alert and interactive Oriented to full date and location Oriented to person Speech dysarthric Cranial Nerves smile eye brow raise symmetric, tongue midline Reflexes: Deep tendon reflexes were symmetrical 2/5 UE, brisk LE bilaterally Sensory: no deficit to vibration, cool touch GT proprioception in tact bilaterally Coordination: Romberg absent Gait/Stance: Posture normal. Gait normal: with steady with steps, base tandem gait. Motor: positive pronator drift left Strength: biceps triceps hand community relations assistant intrinsics bilaterally 5/5 hip flex plantar flex ext 5/ 5 bilaterally Laboratory Results Past 24 Hours: 03/05/17 10:30 Red Blood Count 4.34, Mean Corpuscular Volume 96.3, Mean Corpuscular Hemoglobin 34.1, Mean Corpuscular Hemoglobin Concent 35.4, Mean Platelet Volume 11.1, Neutrophils (%) (Auto) 72.7, Lymphocytes (%) (Auto) 12.8, Monocytes (%) (Auto) 9.9, Eosinophils (%) (Auto) 3.9, Basophils (%) (Auto) 0.5, Neutrophils # (Auto) 4.43, Lymphocytes # (Auto) 0.78, Monocytes # (Auto) 0.60, Eosinophils # (Auto) 0.24, Basophils # (Auto) 0.03 03/05/17 06:28 Test 03/04/17 15:44 03/04/17 16:05 03/04/17 22:10 03/05/17 06:28 Platelet Estimate DECREASED Prothrombin Time 12.5 SECONDS (9.0-12.0) Prothromb Time International Ratio 1.2 (0.9-1.1) Estimated Average Glucose 91 mg/dl Hemoglobin A1c 4.8 % (4.5-5.6) Direct Bilirubin 1.3 mg/dl (0-0.2) Ammonia 39.2 umol/L (11-32) Triglycerides Level 103 mg/dl (0-150) Cholesterol Level 139 mg/dl (0-200) HDL Cholesterol 61 mg/dl LDL Cholesterol, Calculated 57 mg/dl VLDL Cholesterol, Calculated 21 mg/dl Cholesterol/HDL Ratio 2.3 Lipase 393 U/L (73-393) Thyroid Stimulating Hormone (TSH) 3.000 uIu/ml (0.300-4.500) Ethyl Alcohol mg/dL < 3.0 mg/dl (0-3) Urine Color DK YELLOW Urine Appearance CLEAR (CLEAR) Urine pH 5.0 (4.5-7.5) Urine Specific [place] 1.016 (1.000-1.030) Urine Protein 3+ (NEG) Urine Glucose (UA) NEG (NEG) Urine Ketones NEG (NEG) Urine Occult Blood 2+ (NEG) Urine Nitrite NEG (NEG) Urine Bilirubin NEG (NEG) Urine Urobilinogen NEG (NEG) Urine Leukocyte Esterase NEG (NEG) Urine WBC (Auto) 1-5 /hpf (0-5) Urine RBC (Auto) 10-30 /hpf (0-4) Urine Hyaline Casts (Auto) 1-5 /lpf (0-5) Urine Epithelial Cells (Auto) 5-10 /lpf (0-5) Urine Bacteria (Auto) NEG (NEG) Troponin I 0.019 ng/ml (0-0.045) Hypersegmented Polys 1+ Anion Gap 9.0 mmol/L (3-11) Est Creatinine Clear Calc Drug Dose 79.4 ml/min Estimated GFR () 88.8 Estimated GFR (Non- 76.7 BUN/Creatinine Ratio 9.6 (10-20) Calcium Level 8.2 mg/dl (8.5-10.1) Total Bilirubin 2.8 mg/dl (0.2-1) Aspartate Amino Transf (AST/SGOT) 44 U/L (15-37) Alanine Aminotransferase (ALT/SGPT) 22 U/L (12-78) Alkaline Phosphatase 191 U/L (45-117) Total Protein 5.4 gm/dl (6.4-8.2) Albumin 1.8 gm/dl (3.4-5.0) Globulin 3.6 gm/dl (2.5-4.0) Albumin/Globulin Ratio 0.5 (0.9-2) Hepatitis C Antibody Screen NEG (NEG) Test 03/05/17 10:30 03/05/17 11:00 White Blood Count 6.09 K/uL (4.8-10.8) Red Blood Count 4.34 M/uL (4.7-6.1) Hemoglobin 14.8 g/dL (14.0-18.0) Hematocrit 41.8 % (42-52) Mean Corpuscular Volume 96.3 fL (80-100) Mean Corpuscular Hemoglobin 34.1 pg (25-34) Mean Corpuscular Hemoglobin Concent 35.4 g/dl (32-36) Platelet Count 73 K/uL (130-400) Mean Platelet Volume 11.1 fL (7.4-10.4) Neutrophils (%) (Auto) 72.7 % Lymphocytes (%) (Auto) 12.8 % Monocytes (%) (Auto) 9.9 % Eosinophils (%) (Auto) 3.9 % Basophils (%) (Auto) 0.5 % Neutrophils # (Auto) 4.43 K/uL (1.4-6.5) Lymphocytes # (Auto) 0.78 K/uL (1.2-3.4) Monocytes # (Auto) 0.60 K/uL (0.11-0.59) Eosinophils # (Auto) 0.24 K/uL (0-0.5) Basophils # (Auto) 0.03 K/uL (0-0.2) RDW Standard Deviation 44.6 fL (36.4-46.3) RDW Coefficient of Variation 12.8 % (11.5-14.5) Immature Granulocyte % (Auto) 0.2 % Immature Granulocyte # (Auto) 0.01 K/uL (0.00-0.02) Toxic Granulation 1+ Toxic Vacuolation 1+ Vitamin B12 Level 1218 pg/mL (211-911) Folate 11.23 ng/mL (>5.38) Imaging CT head- Interval development of a 1.3 cm hypodensity within the anterior left thalamus and internal capsule which suggests a small acute infarct. No hemorrhage or mass effect. carotid doppler-No hemodynamically significant stenosis seen within the carotid arteries. Significantly elevated blood pressure. Impression 57 year old male with left sided numbness tingling and slurred speech Plan 1. permissive HTN systolic approximate 180 2. PT/OT speech evaluation 3. after stroke protocol optimize blood pressure and DL 4. EtOH withdrawal protocol 5. fall precautions 6. plavix 75 mg and aspirin dual therapy x 3 months 7. unclear history of seizure in past not on seizure medications 8. MRI combo brain for evaluation of stroke reported on CT head 9. 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
[2017-03-05] MEDS ORDERED: CLOPIDOGREL BISULFATE 75 MG TAB PO ONE (14:45)
--- NOTE | 2017-03-05 15:33 | ECHOCARDIOGRAM REPORT ---
*NOTICE TO RECEIVING LIBERTARIAN AGENCY This information is strictly Confidential and protected under [place] law. [place] law prohibits you from making any further disclosure of this information unless further disclosure is expressly permitted by the written consent of the person to whom it pertains or is authorized by law. A general authorization for the release of medical or other information is not sufficient for this purpose. Hospital accepts no responsibility if the information is made available to any other person, INCLUDING THE PATIENT. Interpretation Summary * Name: MURIEL LIVE Study Date: 03/05/2017 12:06 PM BP: 168/94 mmHg * Patient Location: C.2T\S\S242\S\1 HR: 74 * : 1960 (M/d/yyyy) Gender: Male Height: 67 in * Age: 57 yrs Ethnicity: CA Weight: 187 lb * Ordering Physician: Zbigniew Martinez * Referring Physician: TAPAN * Performed By: Iqra Patel RDCS * * Reason For Study: ACUTE CVA * BSA: 2.0 m2 * -- Conclusions -- * Normal LV chamber size with mild concentric LVH. * Normal LV systolic function, EF 65-70%. * No segmental left ventricular wall motion abnormalities are noted. * Grade II diastolic dysfunction. * Aortic valve sclerosis mild, without significant aortic valvular stenosis. * There is mild mitral annular calcification. Focal calcification of chordae tendinae. There is no mitral regurgitation noted. There is no mitral valve stenosis. * Mild left atrial enlargement. Procedure Details * A saline contrast injection was performed to assess for cardiac shunting. * The injection was performed through an intravenous line in the right arm. * The attending nurse who injected the saline contrast was LACY MEDLEY RN. * A total of 20 cc of agitated saline was given. Left Ventricle * The left ventricle is normal in size. * There is mild concentric left ventricular hypertrophy. * Ejection Fraction = 65-70%. * Left ventricular systolic function is normal. * No segmental left ventricular wall motion abnormalities are noted. * The left ventricular wall motion is normal. Right Ventricle * The right ventricular cavity size is normal (basal dimension <4.2 cm in right ventricular apical 4-chamber view). * The right ventricular systolic function is normal as assessed by tricuspid annular plane systolic excursion (TAPSE) (normal >1.5 cm). Atria * The left atrium is mildly dilated. * Right atrial size is normal. * The interatrial septum is intact with no evidence for an atrial septal defect. * Injection of contrast documented no interatrial shunt. Mitral Valve * There is mild mitral annular calcification. * Focal calcification of chordae tendinae. * There is no mitral valve stenosis. * There is no mitral regurgitation noted. Tricuspid Valve * The tricuspid valve anatomy is normal. * Tricuspid stenosis is absent. * There is mild tricuspid regurgitation. Aortic Valve * The aortic valve is trileaflet. * Aortic valve sclerosis mild, without significant aortic valvular stenosis. * There is no significant aortic regurgitation. Pulmonic Valve * The pulmonary valve is not well seen, but the Doppler examination is normal without significant regurgitation or stenosis. Great Vessels * The aortic root is normal size. Pericardium/Pleural * There is no pericardial effusion. Left Ventricular Diastolic Function * Diastolic dysfunction, Grade II (pseudonormalization pattern). MMode 2D Measurements and Calculations IVSd 1.3 cm IVSs 1.9 cm LVIDd 4.4 cm LVIDs 2.7 cm LVPWd 1.5 cm LVPWs 2.0 cm IVS/LVPW 0.84 FS 39.2 % EDV(Teich) 87.0 ml ESV(Teich) 26.2 ml EF(Teich) 69.9 % EDV(cubed) 84.3 ml ESV(cubed) 19.0 ml EF(cubed) 77.5 % % IVS thick 48.3 % % LVPW thick 34.3 % LV mass(C)d 231.8 grams LV mass(C)dI 118.0 grams/m\S\2 LV mass(C)s 216.1 grams LV mass(C)sI 109.9 grams/m\S\2 SV(Teich) 60.8 ml SI(Teich) 30.9 ml/m\S\2 SV(cubed) 65.3 ml SI(cubed) 33.3 ml/m\S\2 Ao root diam 3.4 cm Ao root area 9.2 cm\S\2 LA dimension 4.3 cm LA/Ao 1.3 LVAd ap4 31.1 cm\S\2 LVLd ap4 8.1 cm EDV(MOD-sp4) 101.0 ml LVAs ap4 15.8 cm\S\2 LVLs ap4 6.2 cm ESV(MOD-sp4) 34.1 ml EF(MOD-sp4) 66.2 % LVAd ap2 24.3 cm\S\2 LVLd ap2 7.9 cm EDV(MOD-sp2) 64.4 ml LVAs ap2 11.5 cm\S\2 LVLs ap2 5.9 cm ESV(MOD-sp2) 20.1 ml EF(MOD-sp2) 68.8 % SV(MOD-sp4) 66.9 ml SI(MOD-sp4) 34.0 ml/m\S\2 SV(MOD-sp2) 44.3 ml SI(MOD-sp2) 22.5 ml/m\S\2 Doppler Measurements and Calculations MV E max davonte 90.7 cm/sec MV A max davonte 54.3 cm/sec MV E/A 1.7 MV dec time 0.19 sec Ao V2 max 106.7 cm/sec Ao max PG 4.6 mmHg Ao max PG (full) -0.05 mmHg LV V1 max PG 4.6 mmHg LV V1 max 107.2 cm/sec TR max davonte 200.8 cm/sec
[2017-03-05] MEDS: GABAPENTIN 600MG Q6H DOSE PO SCH (18:01)
[2017-03-05] MEDS ORDERED: GADAVIST IV PRN (22:45)
[2017-03-06 00:11] VITALS: BP 179/90; PULSE 81; TEMP 36.8; O2SAT 97
--- NOTE | 2017-03-06 00:28 | DIAGNOSTIC IMAGING REPORT ---
BRAIN COMBO HISTORY: 57 years-old Male left sided numbness tingling slurred speech acute left-sided numbness with slurred speech COMPARISON: MRI brain 09/11/2007, CT head 03/04/2017 TECHNIQUE: Multiplanar multisequence MRI of the brain was obtained both with and without the use of 8.5 mL Gadavist FINDINGS: Focal area of restricted diffusion involving the left thalamus measuring 1.3 x 0.8 cm is compatible with acute lacunar infarction. No significant edema or mass effect. There is however mildly increased T2/FLAIR signal within this distribution. The midline structures including the corpus callosum, brainstem, optic chiasm and pituitary gland are unremarkable in the sagittal T1 sequence. No cerebellar tonsillar herniation. There is no acute intracranial hemorrhage, midline shift, abnormal extra-axial collections, hydrocephalus or intracranial mass identified. Moderate to extensive areas of T2/FLAIR prolongation are again seen within the subcortical, deep and periventricular white matter of the cerebral and measures bilaterally, mildly progressed from study dated 09/11/2007. There is no abnormal intra-axial or extra-axial enhancement. Major flow voids at the level the skull base appear patent. Trace left mastoid effusion. Mild mucoperiosteal thickening of the ethmoid sinuses. IMPRESSION: 1. Acute lacunar infarction of the left thalamus measures up to 1.3 cm. No significant edema, mass effect or hemorrhage. 2. Atrophy with moderate to extensive foci of T2/FLAIR prolongation within the subcortical, deep and periventricular white matter of the cerebral branches bilaterally suggesting chronic microvascular ischemic changes, mildly progressed from comparison study 09/11/2007. These findings are greater than expected in a patient of this age group. The above report was generated using voice recognition software. It may contain grammatical, syntax or spelling errors. Electronically signed by: Oskar Guzmán M.D. 03/06/2017 12:27 AM Dictated Date/Time: 03/06/2017 12:21 AM
[2017-03-06] MEDS: GABAPENTIN 600MG Q6H DOSE PO SCH (00:57)
[2017-03-06 03:56] VITALS: BP 159/79; PULSE 75; TEMP 36.6; O2SAT 96
[2017-03-06 06:55] LABS: HEMATOCRIT 38.2 % (42-52); MEAN CELL VOLUME 97.4 fL (80-100); MEAN CORPUSCULAR HEMOGLOBIN 33.7 pg (25-34); MEAN CORPUSCULAR HGB CONC 34.6 g/dl (32-36); RED BLOOD COUNT 3.92 M/uL (4.7-6.1); WHITE BLOOD COUNT 5.05 K/uL (4.8-10.8)
[2017-03-06 07:23] LABS: BUN/CREATININE RATIO 8.7 (10-20); CALCIUM 7.8 mg/dl (8.5-10.1); CREATININE 1.15 mg/dl (0.60-1.40); MEAN PLATELET VOLUME 11.3 fL (7.4-10.4); PLATELET COUNT 65 K/uL (130-400); POTASSIUM 3.5 mmol/L (3.5-5.1)
[2017-03-06 07:25] LABS: BASO % 0.4 %; BASO ABS # 0.02 K/uL (0-0.2); COMPLETE YES; ECHINOCYTES 1+; EOS % 5.1 %; IG% 0.2 %; LYMPH ABS # 0.91 K/uL (1.2-3.4); MONO % 12.5 %; NEUT % 63.8 %; TOXIC GRANULATION 1+; VACUOLIZATION 1+
[2017-03-06 07:27] LABS: ALB/GLOB RATIO 0.5 (0.9-2)
[2017-03-06 07:35] VITALS: BP 154/81; PULSE 70; TEMP 37.1
[2017-03-06] MEDS: AMLODIPINE BESYLATE 5 MG TAB PO SCH (08:29)
[2017-03-06] MEDS: GABAPENTIN 600MG Q8H DOSE PO SCH ×2 (08:29→17:23)
[2017-03-06] MEDS: ATORVASTATIN 10 MG TAB PO SCH (08:29)
[2017-03-06] MEDS ORDERED: ASPIRIN 81 MG ECTAB PO SCH (09:00)
[2017-03-06] MEDS ORDERED: CLOPIDOGREL BISULFATE 75 MG TAB PO SCH (09:00)
[2017-03-06] MEDS: MULTI-VITAMIN INFUSION INJ 10 ML, THIAMINE HCL INJ 100 MG, FoLIC ACID INJ 1 MG in SODIU... IV SCH (11:00)
[2017-03-06 11:21] VITALS: BP 160/91; PULSE 68; TEMP 36.4; O2SAT 95
--- NOTE | 2017-03-06 13:51 | Neurology Progress Notes ---
Neurology Progress Note Date of Service Mar 06, 2017. Subjective Cholo is 57yo M with PMH HTN, alcoholic cirrhosis, past history of variceal bleed, gallstone pancreatitis, and seizure who presented to ER with c/o R arm and R leg paresthesias started this morning around 10:00. The intense paresthesias lasted 1-2 minutes, but has continued with faint paresthesias. The paresthesias marched up his leg from his foot to his trunk and arm and hand and then up his neck to his chin and lips. His is in the room and states his speech is a little slurred. He has a history of HTN and typically "170-190's systolic, 90 diastolic". He states he was prescribed atenolol 100mg daily and lasix 20mg daily and OTC potassium supplement and he states he does take them daily. [facility] and states in past PCP discussed HTN med changes but pt has been resistant. He drinks 3-7 beers daily. Denies fever/chills, diaphoresis, N/V/D/C, TORRES, dizziness, syncope, vision changes, neck pain, back pain, speech changes, memory problems, facial drooping, trouble with gait, LOC, CP, SOB,falls or head injury. On arrival in ED his blood pressure was 256/139 ETOH <3. CT head: no acute hemorrhage, Age indeterminate but likely old lacunar infarct within the right thalamus. Today he is up walking with PT. He is doing well ambulating on his own with a mild foot drag. He states he is dragging the foot because he is afraid to walk on it. denies CP, SOB, abdominal pain, weakness, numbness, N, V, additional symptoms of numbness, slurred speech Objective Date Time Temp Pulse Resp B/P (MAP) Pulse Ox O2 Delivery O2 Flow Rate FiO2 03/06/17 12:00 Room Air 03/06/17 11:21 36.4 68 18 160/91 (114) 95 Room Air 03/06/17 08:30 Room Air 03/06/17 08:00 Room Air 03/06/17 07:35 37.1 70 16 154/81 (105) Room Air 98 03/06/17 04:00 Room Air 03/06/17 03:56 36.6 75 18 159/79 (105) 96 03/06/17 00:11 36.8 81 18 179/90 (119) 97 03/05/17 23:59 Room Air 03/05/17 20:00 Room Air 03/05/17 19:57 36.9 79 20 182/91 (121) 96 Room Air 03/05/17 16:01 36.7 57 18 175/87 (116) 96 Room Air 03/05/17 16:00 Room Air 03/05/17 15:00 75 95 Last 24 Hours Test 03/06/17 06:36 White Blood Count 5.05 K/uL Red Blood Count 3.92 M/uL Hemoglobin 13.2 g/dL Hematocrit 38.2 % Mean Corpuscular Volume 97.4 fL Mean Corpuscular Hemoglobin 33.7 pg Mean Corpuscular Hemoglobin Concent 34.6 g/dl Platelet Count 65 K/uL Mean Platelet Volume 11.3 fL Neutrophils (%) (Auto) 63.8 % Lymphocytes (%) (Auto) 18.0 % Monocytes (%) (Auto) 12.5 % Eosinophils (%) (Auto) 5.1 % Basophils (%) (Auto) 0.4 % Neutrophils # (Auto) 3.22 K/uL Lymphocytes # (Auto) 0.91 K/uL Monocytes # (Auto) 0.63 K/uL Eosinophils # (Auto) 0.26 K/uL Basophils # (Auto) 0.02 K/uL RDW Standard Deviation 46.3 fL RDW Coefficient of Variation 13.0 % Immature Granulocyte % (Auto) 0.2 % Immature Granulocyte # (Auto) 0.01 K/uL Toxic Granulation 1+ Toxic Vacuolation 1+ Echinocytes 1+ Sodium Level 142 mmol/L Potassium Level 3.5 mmol/L Chloride Level 110 mmol/L Carbon Dioxide Level 24 mmol/L Anion Gap 8.0 mmol/L Blood Urea Nitrogen 10 mg/dl Creatinine 1.15 mg/dl Est Creatinine Clear Calc Drug Dose 74.0 ml/min Estimated GFR () 81.4 Estimated GFR (Non- 70.3 BUN/Creatinine Ratio 8.7 Random Glucose 101 mg/dl Calcium Level 7.8 mg/dl Total Bilirubin 2.1 mg/dl Aspartate Amino Transf (AST/SGOT) 42 U/L Alanine Aminotransferase (ALT/SGPT) 20 U/L Alkaline Phosphatase 182 U/L Total Protein 5.0 gm/dl Albumin 1.6 gm/dl Globulin 3.4 gm/dl Albumin/Globulin Ratio 0.5 Triglycerides Level 47 mg/dl Cholesterol Level 100 mg/dl HDL Cholesterol 51 mg/dl LDL Cholesterol, Calculated 40 mg/dl VLDL Cholesterol, Calculated 9 mg/dl Cholesterol/HDL Ratio 2.0 Imaging: MRI brain with and without- Acute lacunar infarction of the left thalamus measures up to 1.3 cm. No significant edema, mass effect or hemorrhage. Atrophy with moderate to extensive foci of T2/FLAIR prolongation within the subcortical, deep and periventricular white matter of the cerebral branches bilaterally suggesting chronic microvascular ischemic changes, mildly progressed from comparison study 09/11/2007. These findings are greater than expected in a patient of this age group. TTE- Normal LV systolic function, EF 65-70%. * No segmental left ventricular wall motion abnormalities are noted. * Grade II diastolic dysfunction. * Aortic valve sclerosis mild, without significant aortic valvular stenosis. * There is mild mitral annular calcification. Focal calcification of chordae tendinea. There is no mitral regurgitation noted. There is no mitral valve stenosis. * Mild left atrial enlargement. no ASD Exam: Physical Exam: Constitutional:appearance nourished, healthy and normal Ears, Nose, Mouth and Throat: mucous membranes moist, no injection and skin normal, eyes normal Cardiovascular: normal S-1 and S-2 and regular rate and rhythm Respiratory: course breath sounds Musculoskeletal: no peripheral edema and good distal pulses Skin: no stigmata of neurocutaneous disease noted and normal and intact Eyes: extraocular muscles intact (EOMI) and pupils equal, round and reactive to light (PERRL) NEUROLOGIC EXAMINATION: Mental status: Alert and interactive Oriented to full date and location Oriented to person Speech some dysarthria with words Cranial Nerves smile eye brow raise symmetric, tongue midline Coordination: Romberg absent Gait/Stance: Posture steady tandem with arms swing, slight drag of right foot Motor: left pronator drift Strength: biceps triceps deltoids, 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 hip flex 5/5 bilaterally Current Inpatient Medications Medications (Trade) Dose Ordered Sig/Jos Route Start Time Stop Time Status Last Admin Dose Admin Miscellaneous Information (Pharmacist Discharge Med Rec Consult) 1 ea UD PRN N/A 03/04/17 19:00 04/03/17 18:59 Acetaminophen (Tylenol Tab) 650 mg Q4H PRN PO 03/04/17 19:00 04/03/17 18:59 Amlodipine Besylate (Norvasc Tab) 5 mg QAM PO 03/05/17 09:00 04/04/17 08:59 03/06/17 08:29 5 MG Atenolol (Tenormin Tab) 100 mg DAILY PO 03/05/17 09:00 04/04/17 08:59 03/06/17 08:30 100 MG Atorvastatin Calcium (Lipitor Tab) 10 mg QAM PO 03/05/17 09:00 04/04/17 08:59 03/06/17 08:29 10 MG Lorazepam (Ativan Tab) 1 mg Q6 PRN PO 03/04/17 19:30 04/03/17 19:29 03/05/17 07:29 1 MG Clonidine HCl (Catapres Tab) 0.1 mg Q6H PRN PO 03/05/17 10:45 04/04/17 10:44 03/06/17 00:57 0.1 MG Lorazepam (Ativan Tab) 1 mg ONE PRN PO 03/05/17 10:45 Multivitamins 10 ml/Thiamine HCl 100 mg/Folic Acid 1 mg/Sodium Chloride 1,011.2 ml @ 60 mls/hr DAILY@1100 IV 03/05/17 11:00 04/04/17 10:59 03/05/17 11:16 60 MLS/HR Gabapentin (Neurontin Tab) 600 mg Q8H PO 03/06/17 08:00 03/07/17 00:01 03/06/17 08:29 600 MG Gabapentin (Neurontin Tab) 600 mg Q12H PO 03/07/17 12:00 03/08/17 00:01 Gabapentin (Neurontin Tab) 600 mg Q24H PO 03/09/17 00:00 03/09/17 00:01 Clopidogrel Bisulfate (plAVix TAB) 75 mg QAM PO 03/06/17 09:00 04/05/17 08:59 03/06/17 08:29 75 MG Aspirin (Ecotrin Tab) 81 mg QAM PO 03/06/17 09:00 04/05/17 08:59 03/06/17 08:29 81 MG Gadobutrol (Gadavist) 8.5 mmol UD PRN IV 03/05/17 22:45 03/09/17 22:44 Impression 57 year old male with left sided numbness tingling and slurred speech Plan 1. permissive HTN systolic approximate 180 2. PT/OT speech evaluation 3. after stroke protocol optimize blood pressure and DL 4. EtOH withdrawal protocol 5. fall precautions 6. plavix 75 mg and aspirin 81 mg dual therapy x 3 months, was not on aspirin previously will then stop plavix and continue aspirin for a lifetime 7. unclear history of seizure in past not on seizure medications 8. MRI combo brain for evaluation of stroke reported on CT head- stroke confirmed on MRI 9. tobacco and EtOH counseling 10. carotid doppler read as no significant stenosis I have seen and discussed above patient with Dr Ld Savage, neurology I have seen this man reviewed his studies He has a confirmed small vessel cva deep in the left henuisphere and is improving to the point that he could be discharged if medically stable IN light of the platelet count depression which is probably etoh related I would choose only one antiplatelet rx and in light of potential for etoh gastritis would choose plavix but the final decision would rest with the hospitalist team and costs may ultimately drive the decision if plavix is not covered by his insurance plan. For now then neurology will sign off follow up with us in four to six weeks Ld Savage MD
[2017-03-06 16:16] VITALS: BP 176/87; PULSE 76; TEMP 36.6; O2SAT 99
--- NOTE | 2017-03-06 17:24 | Progress Note ---
Medicine Progress Note Date & Time of Visit: Mar 06, 2017 at 17:14. Subjective seen resting in bed, comfortable in good spirits states he feels much better slurred speech, right sided paresthesias all resolved denies other new neuro symptoms denies headache, nausea, dizziness, chest pain, dyspnea, palpitations no signs of bleeding denies tremors, anxiety, sweating denies other symptoms states he is ready and would like to be discharged today Objective Last 8 Hrs Date Time Temp Pulse Resp B/P (MAP) Pulse Ox O2 Delivery O2 Flow Rate FiO2 03/06/17 16:16 36.6 76 20 176/87 (116) 99 Room Air 03/06/17 12:00 Room Air 03/06/17 11:21 36.4 68 18 160/91 (114) 95 Room Air Physical Exam: General- oriented x 3, not in distress, speaks in sentences with no effort Eyes- EOMI, anicteric ENT- oropharynx clear Neck- supple, no JVD Lungs- clear breath sounds, no rales/wheezing Heart- regular rhythm; no murmur, normal rate Abdomen- normal bowel sounds, soft, nontender Extremities- no pretibial edema, no calf tenderness Neuro- alert, oriented x 3; EOMI; no facial palsy; no dysarthria; motor 5/5 bilaterally; sensation 100% on all ext Skin- warm & dry Laboratory Results: Last 24 Hours Test 03/06/17 06:36 White Blood Count 5.05 K/uL Red Blood Count 3.92 M/uL Hemoglobin 13.2 g/dL Hematocrit 38.2 % Mean Corpuscular Volume 97.4 fL Mean Corpuscular Hemoglobin 33.7 pg Mean Corpuscular Hemoglobin Concent 34.6 g/dl Platelet Count 65 K/uL Mean Platelet Volume 11.3 fL Neutrophils (%) (Auto) 63.8 % Lymphocytes (%) (Auto) 18.0 % Monocytes (%) (Auto) 12.5 % Eosinophils (%) (Auto) 5.1 % Basophils (%) (Auto) 0.4 % Neutrophils # (Auto) 3.22 K/uL Lymphocytes # (Auto) 0.91 K/uL Monocytes # (Auto) 0.63 K/uL Eosinophils # (Auto) 0.26 K/uL Basophils # (Auto) 0.02 K/uL RDW Standard Deviation 46.3 fL RDW Coefficient of Variation 13.0 % Immature Granulocyte % (Auto) 0.2 % Immature Granulocyte # (Auto) 0.01 K/uL Toxic Granulation 1+ Toxic Vacuolation 1+ Echinocytes 1+ Sodium Level 142 mmol/L Potassium Level 3.5 mmol/L Chloride Level 110 mmol/L Carbon Dioxide Level 24 mmol/L Anion Gap 8.0 mmol/L Blood Urea Nitrogen 10 mg/dl Creatinine 1.15 mg/dl Est Creatinine Clear Calc Drug Dose 74.0 ml/min Estimated GFR () 81.4 Estimated GFR (Non- 70.3 BUN/Creatinine Ratio 8.7 Random Glucose 101 mg/dl Calcium Level 7.8 mg/dl Total Bilirubin 2.1 mg/dl Aspartate Amino Transf (AST/SGOT) 42 U/L Alanine Aminotransferase (ALT/SGPT) 20 U/L Alkaline Phosphatase 182 U/L Total Protein 5.0 gm/dl Albumin 1.6 gm/dl Globulin 3.4 gm/dl Albumin/Globulin Ratio 0.5 Triglycerides Level 47 mg/dl Cholesterol Level 100 mg/dl HDL Cholesterol 51 mg/dl LDL Cholesterol, Calculated 40 mg/dl VLDL Cholesterol, Calculated 9 mg/dl Cholesterol/HDL Ratio 2.0 Assessment & Plan 57 year old male with history of HTN, Alcoholism, presenting with right sided numbness and paresthesias. ACUTE CVA, LEFT THALAMUS AND INTERNAL CAPSULE - CT head: IMPRESSION: Interval development of a 1.3 cm hypodensity within the anterior left thalamus and internal capsule which suggests a small acute infarct. No hemorrhage or mass effect. Doppler of the Carotids: Negative MRI Brain: noted - Neurology consulted, recommending: Plavix 75mg daily (due to thrombocytopenia, single antiplatelet agent recommended for now) [id number] po daily follow up with Dr. Savage in 4-6 weeks HTN EMERGENCY Initial BP 256/139 decreased to 213/109 after labetalol 20mg IV given in ER. Paresthesias to RLE, RUE. EKG: NSR rate 82, negative CXR. CT head: no acute hemorrhage, white matter hypodensities, likely old lacunar infarct R thalamus - added amlodipine 5mg HS and 5mg in am - continue atenolol and lasix BP improving will avoid drastic reduction in BP in light of acute CVA, goal for syst BP 140 -160 add PRN Clonidine -- continue to monitor as outpatient THROMBOCYTOPENIA - chronic likely from Alcohol Abuse - monitor while on Plavix ETOH ABUSE/HX ALCOHOLIC CIRRHOSIS: no withdrawal symptoms currently. A&O x 3. AST: 63, ALT: 29, Alk phos:275, Total bili: 3.7, direct bili:1.3. Denies any abdominal pain. - Alcohol Withdrawal protocol ordered including Gabapentin taper, Ativan PRN and Banana Bag - will be prescribed Gabapentin taper on discharge, advised to discontinue Gabapentin if he will resume alcohol consumption strongly advised to stop drinking alcohol HISTORY OF LIVER CIRRHOSIS - likely from Alcohol - LFTs seem to be within baseline - monitor LFTs closely in light of starting Lipitor MICROSCOPIC HEMATURIA - WBC 20-30 - repeat UA as outpatient DISPOSITION d/c home ff up with PCP next week ff up with Dr. Savage in 4-6 weeks Current Inpatient Medications: Current Inpatient Medications Medications (Trade) Dose Ordered Sig/Jos Route Start Time Stop Time Status Last Admin Dose Admin Miscellaneous Information (Pharmacist Discharge Med Rec Consult) 1 ea UD PRN N/A 03/04/17 19:00 04/03/17 18:59 Acetaminophen (Tylenol Tab) 650 mg Q4H PRN PO 03/04/17 19:00 04/03/17 18:59 Amlodipine Besylate (Norvasc Tab) 5 mg QAM PO 03/05/17 09:00 04/04/17 08:59 03/06/17 08:29 5 MG Atenolol (Tenormin Tab) 100 mg DAILY PO 03/05/17 09:00 04/04/17 08:59 03/06/17 08:30 100 MG Atorvastatin Calcium (Lipitor Tab) 10 mg QAM PO 03/05/17 09:00 04/04/17 08:59 03/06/17 08:29 10 MG Lorazepam (Ativan Tab) 1 mg Q6 PRN PO 03/04/17 19:30 04/03/17 19:29 03/05/17 07:29 1 MG Clonidine HCl (Catapres Tab) 0.1 mg Q6H PRN PO 03/05/17 10:45 04/04/17 10:44 03/06/17 00:57 0.1 MG Lorazepam (Ativan Tab) 1 mg ONE PRN PO 03/05/17 10:45 Multivitamins 10 ml/Thiamine HCl 100 mg/Folic Acid 1 mg/Sodium Chloride 1,011.2 ml @ 60 mls/hr DAILY@1100 IV 03/05/17 11:00 04/04/17 10:59 03/05/17 11:16 60 MLS/HR Gabapentin (Neurontin Tab) 600 mg Q8H PO 03/06/17 08:00 03/07/17 00:01 03/06/17 08:29 600 MG Gabapentin (Neurontin Tab) 600 mg Q12H PO 03/07/17 12:00 03/08/17 00:01 Gabapentin (Neurontin Tab) 600 mg Q24H PO 03/09/17 00:00 03/09/17 00:01 Clopidogrel Bisulfate (plAVix TAB) 75 mg QAM PO 03/06/17 09:00 04/05/17 08:59 03/06/17 08:29 75 MG Aspirin (Ecotrin Tab) 81 mg QAM PO 03/06/17 09:00 04/05/17 08:59 03/06/17 08:29 81 MG Gadobutrol (Gadavist) 8.5 mmol UD PRN IV 03/05/17 22:45 03/09/17 22:44
[2017-03-06] MEDS ORDERED: MULT-589 PO (17:30)
[2017-03-06] MEDS ORDERED: PLV75 PO (17:30)
[2017-03-06] MEDS ORDERED: NRV5 PO (17:30)
[2017-03-06] MEDS ORDERED: NRN600 PO (17:30)
[2017-03-06] MEDS ORDERED: LPT10 PO (17:30)
--- NOTE | 2017-03-06 17:36 | Discharge Instructions ---
Discharge Instructions Date of Service Mar 06, 2017. Admission Reason for Admission: Hypertensive Urgency, Paresthesia Discharge Discharge Diagnosis / Problem: ACUTE STROKE Discharge Goals Goal(s): Diagnostic testing, Therapeutic intervention Activity Recommendations Activity Limitations: as noted below (NO HEAVY EXERTION UNTIL FOLLOW UP WITH PRIMARY CARE PHYSICIAN) Lifting Limitations: until after follow-up appointment Exercise/Sports Limitations: until after follow-up appointment Driving or Machine Use: NO DRIVING UNTIL FOLLOW UP WITH PRIMARY CARE PHYSICIAN . Instructions / Follow-Up Instructions / Follow-Up PLEASE REVIEW YOUR NEW MEDICATION LIST AND FOLLOW INSTRUCTIONS CAREFULLY. GO TO THE ER IMMEDIATELY IF YOU HAVE ANY HEAD TRAUMA. CALL YOUR PRIMARY CARE PHYSICIAN IF YOU ARE HAVING DIZZINESS, LIGHTHEADEDNESS, WEAKNESS, BLACK OR BLOOD IN THE STOOLS. FOLLOW UP WITH PRIMARY CARE PHYSICIAN DR. MUNOZ ([facility]) ON Friday03/12/17 AT 10:25 AM. FOLLOW UP WITH NEUROLOGIST DR. RICE IN 4-6 WEEKS. TEL. NO. Medical Emergencies: Call 911 immediately if you experience any of the following warning signs and symptoms of Stroke: * Sudden numbness or weakness of the face, arm or leg, especially on one side of the body * Sudden confusion, trouble speaking or understanding * Sudden trouble seeing in one or both eyes * Sudden trouble walking, dizziness, loss of balance or coordination * Sudden severe headache with no cause Do not delay calling 911 if you experience any warning signs or symptoms of a stroke. Delay in seeking medical attention may affect what treatments can be given to you. Risk Factors for Stroke: You can reduce your chances of stroke by working with your medical provider to adopt a healthy lifestyle. Some specific ways to lower your chance of stroke are: * If you are a smoker, now is the time to stop smoking cigarettes * If you are diabetic, improve the control of your blood sugars * Avoid excessive amounts of alcohol * Control high blood pressure * Lose weight if you are overweight * Be sure to lead an active lifestyle * Eat a healthy diet low in salt, cholesterol and fat You should know about other risk factors for stroke that you are unable to control. These include: * Age 55 years or older * Male gender * Certain racial groups: , or / * Family History of Stroke, Mini stroke or Heart Attack * Sickle Cell Disease Follow Up: It is important for you to keep your follow up appointments with your medical provider. Current Hospital Diet Patient's current hospital diet: AHA Diet (Heart Healthy) Discharge Diet Recommended Diet: AHA Diet (Heart Healthy) Procedures Procedures Performed: BRAIN MRI, CT SCAN OF THE HEAD, CAROTID ULTRAOUND, ECHOCARDIOGRAM Pending Studies Studies pending at discharge: no Laboratory Results Hemoglobin A1c Test 03/04/17 15:44 Range/Units Estimated Average Glucose 91 mg/dl Hemoglobin A1c 4.8 4.5-5.6 % Lipid Panel Test 03/06/17 06:36 Range/Units Triglycerides Level 47 0-150 mg/dl Cholesterol Level 100 0-200 mg/dl HDL Cholesterol 51 mg/dl Cholesterol/HDL Ratio 2.0 LDL Cholesterol, Calculated 40 mg/dl Medical Emergencies . Who to Call and When: Medical Emergencies: Call 911 immediately if you experience any of the following warning signs and symptoms of Stroke: * Sudden numbness or weakness of the face, arm or leg, especially on one side of the body * Sudden confusion, trouble speaking or understanding * Sudden trouble seeing in one or both eyes * Sudden trouble walking, dizziness, loss of balance or coordination * Sudden severe headache with no cause Do not delay calling 911 if you experience any warning signs or symptoms of a stroke. Delay in seeking medical attention may affect what treatments can be given to you. . Non-Emergent Contact Non-Emergency issues call your: Primary Care Provider, Neurologist Call Non-Emergent contact if: you have a fever, you have any medication questions . . "Provider Documentation" section prepared by Zbigniew Martinez. . Stroke Core Measures Reason no t-PA for Stroke: Treatment not indicated Reason no antithrom by day 2: Treatment provided - N/A Reason no antithrom at D/C: Treatment provided - N/A Reason no statin at D/C: Treatment provided - N/A Reason no anticoag w/a fib: Treatment provided - N/A VTE Core Measure Inpt VTE Proph given/why not?: SCD's, Contraindicated (THROMBOCYTOPENIA)
[2017-03-06 17:49] VITALS: BP 154/82; PULSE 81; TEMP 36.6; O2SAT 99
--- NOTE | 2017-03-06 18:04 | Discharge Summary ---
Discharge Summary Date of Service Mar 06, 2017. Discharge Summary Admission Date: Mar 04, 2017 at 19:06 Discharge Date: Mar 06, 2017 Discharge Disposition: Home Principal Diagnosis: ACUTE CVA, LEFT THALAMUS AND INTERNAL CAPSULE Secondary Diagnoses/Problems: Please refer to hospital course below. Procedures: BRAIN COMBO HISTORY: 57 years-old Male left sided numbness tingling slurred speech acute left-sided numbness with slurred speech COMPARISON: MRI brain 09/11/2007, CT head 03/04/2017 TECHNIQUE: Multiplanar multisequence MRI of the brain was obtained both with and without the use of 8.5 mL Gadavist FINDINGS: Focal area of restricted diffusion involving the left thalamus measuring 1.3 x 0.8 cm is compatible with acute lacunar infarction. No significant edema or mass effect. There is however mildly increased T2/FLAIR signal within this distribution. The midline structures including the corpus callosum, brainstem, optic chiasm and pituitary gland are unremarkable in the sagittal T1 sequence. No cerebellar tonsillar herniation. There is no acute intracranial hemorrhage, midline shift, abnormal extra-axial collections, hydrocephalus or intracranial mass identified. Moderate to extensive areas of T2/FLAIR prolongation are again seen within the subcortical, deep and periventricular white matter of the cerebral and measures bilaterally, mildly progressed from study dated 09/11/2007. There is no abnormal intra-axial or extra-axial enhancement. Major flow voids at the level the skull base appear patent. Trace left mastoid effusion. Mild mucoperiosteal thickening of the ethmoid sinuses. IMPRESSION: 1. Acute lacunar infarction of the left thalamus measures up to 1.3 cm. No significant edema, mass effect or hemorrhage. 2. Atrophy with moderate to extensive foci of T2/FLAIR prolongation within the subcortical, deep and periventricular white matter of the cerebral branches bilaterally suggesting chronic microvascular ischemic changes, mildly progressed from comparison study 09/11/2007. These findings are greater than expected in a patient of this age group. CAROTID US: IMPRESSION: 1. No hemodynamically significant stenosis seen within the carotid arteries. 2. Significantly elevated blood pressure. ECHO: * -- Conclusions -- * Normal LV chamber size with mild concentric LVH. * Normal LV systolic function, EF 65-70%. * No segmental left ventricular wall motion abnormalities are noted. * Grade II diastolic dysfunction. * Aortic valve sclerosis mild, without significant aortic valvular stenosis. * There is mild mitral annular calcification. Focal calcification of chordae tendinae. There is no mitral regurgitation noted. There is no mitral valve stenosis. * Mild left atrial enlargement. CHEST ONE VIEW PORTABLE. FINDINGS: Atherosclerosis of aortic arch. Cardiac silhouette normal in size. Lungs and pleural spaces clear. Osseous structures normal. Upper abdomen normal. IMPRESSION: 1. No acute cardiopulmonary disease. Consultations: Neurologist Dr. Rice/SHEREEN Westfall Pending Studies/Follow-Up: Please refer to hospital course below. Medication Reconciliation New Medications: Multivitamins (Daily Jessica) 1 Tab Tab 1 TAB PO DAILY for 30 Days, #30 TABS 2 Refills Amlodipine Besylate (Amlodipine Besylate) 5 Mg Tab 5 MG PO QAM for 30 Days, #30 TAB 2 Refills Atorvastatin (Atorvastatin Calcium) 10 Mg Tab 10 MG PO QAM for 30 Days, #30 TAB 2 Refills Clopidogrel Bisulfate (Clopidogrel) 75 Mg Tab 75 MG PO QAM for 30 Days, #30 TAB 2 Refills with food Gabapentin (Gabapentin) 600 Mg Tab 600 MG PO UD for 2 Days, #3 TAB on 03/07/17, take 1 tab po twice a day, then on 03/08/17, take 1 tab po once, then STOP Continued Medications: Atenolol (Tenormin) 50 Mg Tab 100 MG PO DAILY, TAB Furosemide (Lasix) 20 Mg Tab 20 MG PO DAILY, TAB Potassium (Potassium) 99 Mg Tab 99 MG PO DAILY Admission Information HPI (per Admitting provider): Pt is 57yo M with PMH HTN, alcoholic cirrhosis who presented to ER with c/o R arm and R leg paresthesias started this morning around 10:00. States intense paresthesias lasted 1-2 minutes, but has continued with faint paresthesias. Reports started feeling in his R leg and then R arm. Reports paresthesias to entire R leg and entire R arm, hand & fingers. Denies any injury/trauma or prolonged sitting/lying on R side. Denies weakness of extremities. Reports hx HTN and typically "170-190's systolic, 90 diastolic". States takes atenolol 100mg daily and lasix 20mg daily and OTC potassium supplement. [facility] and states in past PCP discussed HTN med changes but pt has been resistant. Pt reports drinks 3-7 beers daily. Hasn't drank ETOH today. Denies other drug use. Denies fever/chills, diaphoresis, N/V/D/C, TORRES, dizziness, syncope, vision changes, neck pain, back pain, speech changes, memory problems, facial drooping , trouble with gait, LOC, CP, SOB, orthopnea, palpitations, cough, sore throat, choking, otalgia, rhinorrhea, abdominal pain, extremity edema, rashes, urinary symptoms. In ER BP initially 256/139 given labetalol 20mg IV and BP 213/109. P:90, R:20, pulse ox:97% on RA. Afebrile. No leukocytosis. ETOH <3. No leukocytosis. Negative troponin. CXR: negative. CT head: no acute hemorrhage, Age indeterminate but likely old lacunar infarct within the right thalamus. 2008: pt with hx alcoholic hepatitis, gallstone pancreatitis with variceal bleed , cholecystectomy and then hx seizure. Physical Exam (per Admitting): General Appearance: WD/WN, no apparent distress Head: normocephalic, atraumatic Eyes: normal inspection, PERRL, EOMI, sclerae normal ENT: hearing grossly normal, pharynx normal Neck: supple, no JVD, no carotid bruits, trachea midline, + pertinent finding (non-tender, ROM intact) Respiratory/Chest: lungs clear, normal breath sounds, no respiratory distress, no accessory muscle use Cardiovascular: regular rate, rhythm, no edema, no murmur Abdomen/GI: normal bowel sounds, non tender, soft Extremities/Musculoskelatal: normal inspection, normal capillary refill, no pedal edema, normal range of motion, non-tender, + pertinent finding (strength 5 /5 throughout bilaterally. able to correctly identify sharp sensation to upper and lower extremities) Neurologic/Psych: vmware consultant II-XII nml as tested, no motor/sensory deficits, alert , normal mood/affect, oriented x 3, + pertinent finding (no facial drooping, no aphasia, no weakness) Skin: normal color, warm/dry, no rash Hospital Course 57 year old male with history of HTN, Alcoholism, presenting with right sided numbness and paresthesias. ACUTE CVA, LEFT THALAMUS AND INTERNAL CAPSULE - CT head: IMPRESSION: Interval development of a 1.3 cm hypodensity within the anterior left thalamus and internal capsule which suggests a small acute infarct. No hemorrhage or mass effect. MRI Brain: IMPRESSION: 1. Acute lacunar infarction of the left thalamus measures up to 1.3 cm. No significant edema, mass effect or hemorrhage. 2. Atrophy with moderate to extensive foci of T2/FLAIR prolongation within the subcortical, deep and periventricular white matter of the cerebral branches bilaterally suggesting chronic microvascular ischemic changes, mildly progressed from comparison study 09/11/2007. These findings are greater than expected in a patient of this age group. Carotid US: No significant Stenosis Echo: * Normal LV chamber size with mild concentric LVH. * Normal LV systolic function, EF 65-70%. * No segmental left ventricular wall motion abnormalities are noted. * Grade II diastolic dysfunction. * Aortic valve sclerosis mild, without significant aortic valvular stenosis. * There is mild mitral annular calcification. Focal calcification of chordae tendinae. There is no mitral regurgitation noted. There is no mitral valve stenosis. * Mild left atrial enlargement. - other work up: A1c 4.8 LDL 40 - given Aspirin, Plavix, Lipitor BP gradually reduced to systolic 150-160 range - Neurologic symptoms mostly resolved on hospital day 3 ambulating at baseline - Neurology consulted- Dr. Rice, recommending: Plavix 75mg daily (due to thrombocytopenia, single antiplatelet agent recommended for now) Lipitor 10mg po daily follow up with Dr. Rice in 4-6 weeks HYPERTENSIVE EMERGENCY Initial BP 256/139 decreased to 213/109 after labetalol 20mg IV given in ER - added amlodipine 5mg daily continued atenolol BP improving to systolic 150-160, patient asymptomatic reports history of seizure with lowering BP further will avoid drastic reduction in BP in light of acute CVA, goal for syst BP 140 -160 for a few days -- continue to monitor as outpatient THROMBOCYTOPENIA - chronic likely from Alcohol Abuse - Plt level 60-70s - monitor while on Plavix ETOH ABUSE/HX ALCOHOLIC CIRRHOSIS: - Alcohol Withdrawal protocol ordered including Gabapentin taper, Ativan PRN and Banana Bag - no signs of withdrawal as inpatient - will be prescribed Gabapentin taper on discharge, advised to discontinue Gabapentin if he will resume alcohol consumption strongly advised to stop drinking alcohol HISTORY OF LIVER CIRRHOSIS - likely from Alcoholism - AST: 63, ALT: 29, Alk phos:275, Total bili: 3.7, direct bili:1.3. Denies any abdominal pain. - LFTs seem to be within baseline - monitor LFTs closely in light of starting Lipitor MICROSCOPIC HEMATURIA - WBC 20-30 - repeat UA as outpatient GRADE 2 DIASTOLIC CHF - euvolemic continue Lasix 20mg po daily with potassium monitor DISPOSITION d/c home ff up with PCP next week ff up with Dr. Rice in 4-6 weeks Total time spent on discharge = 45 mins This includes examination of the patient, discharge planning, medication reconciliation, and communication with other providers. Discharge Instructions Discharge Instructions Date of Service Mar 06, 2017. Admission Reason for Admission: Hypertensive Urgency, Paresthesia Discharge Discharge Diagnosis / Problem: ACUTE STROKE Discharge Goals Goal(s): Diagnostic testing, Therapeutic intervention Activity Recommendations Activity Limitations: as noted below (NO HEAVY EXERTION UNTIL FOLLOW UP WITH PRIMARY CARE PHYSICIAN) Lifting Limitations: until after follow-up appointment Exercise/Sports Limitations: until after follow-up appointment Driving or Machine Use: NO DRIVING UNTIL FOLLOW UP WITH PRIMARY CARE PHYSICIAN . Instructions / Follow-Up Instructions / Follow-Up PLEASE REVIEW YOUR NEW MEDICATION LIST AND FOLLOW INSTRUCTIONS CAREFULLY. GO TO THE ER IMMEDIATELY IF YOU HAVE ANY HEAD TRAUMA. CALL YOUR PRIMARY CARE PHYSICIAN IF YOU ARE HAVING DIZZINESS, LIGHTHEADEDNESS, WEAKNESS, BLACK OR BLOOD IN THE STOOLS. FOLLOW UP WITH PRIMARY CARE PHYSICIAN DR. MUNOZ ([facility]) ON Friday03/12/17 AT 10:25 AM. FOLLOW UP WITH NEUROLOGIST DR. RICE IN 4-6 WEEKS. TEL. NO. Medical Emergencies: Call 911 immediately if you experience any of the following warning signs and symptoms of Stroke: * Sudden numbness or weakness of the face, arm or leg, especially on one side of the body * Sudden confusion, trouble speaking or understanding * Sudden trouble seeing in one or both eyes * Sudden trouble walking, dizziness, loss of balance or coordination * Sudden severe headache with no cause Do not delay calling 911 if you experience any warning signs or symptoms of a stroke. Delay in seeking medical attention may affect what treatments can be given to you. Risk Factors for Stroke: You can reduce your chances of stroke by working with your medical provider to adopt a healthy lifestyle. Some specific ways to lower your chance of stroke are: * If you are a smoker, now is the time to stop smoking cigarettes * If you are diabetic, improve the control of your blood sugars * Avoid excessive amounts of alcohol * Control high blood pressure * Lose weight if you are overweight * Be sure to lead an active lifestyle * Eat a healthy diet low in salt, cholesterol and fat You should know about other risk factors for stroke that you are unable to control. These include: * Age 55 years or older * Male gender * Certain racial groups: , or / * Family History of Stroke, Mini stroke or Heart Attack * Sickle Cell Disease Follow Up: It is important for you to keep your follow up appointments with your medical provider. Current Hospital Diet Patient's current hospital diet: AHA Diet (Heart Healthy) Discharge Diet Recommended Diet: AHA Diet (Heart Healthy) Procedures Procedures Performed: BRAIN MRI, CT SCAN OF THE HEAD, CAROTID ULTRAOUND, ECHOCARDIOGRAM Pending Studies Studies pending at discharge: no Laboratory Results Hemoglobin A1c Test 03/04/17 15:44 Range/Units Estimated Average Glucose 91 mg/dl Hemoglobin A1c 4.8 4.5-5.6 % Lipid Panel Test 03/06/17 06:36 Range/Units Triglycerides Level 47 0-150 mg/dl Cholesterol Level 100 0-200 mg/dl HDL Cholesterol 51 mg/dl Cholesterol/HDL Ratio 2.0 LDL Cholesterol, Calculated 40 mg/dl Medical Emergencies . Who to Call and When: Medical Emergencies: Call 911 immediately if you experience any of the following warning signs and symptoms of Stroke: * Sudden numbness or weakness of the face, arm or leg, especially on one side of the body * Sudden confusion, trouble speaking or understanding * Sudden trouble seeing in one or both eyes * Sudden trouble walking, dizziness, loss of balance or coordination * Sudden severe headache with no cause Do not delay calling 911 if you experience any warning signs or symptoms of a stroke. Delay in seeking medical attention may affect what treatments can be given to you. . Non-Emergent Contact Non-Emergency issues call your: Primary Care Provider, Neurologist Call Non-Emergent contact if: you have a fever, you have any medication questions . . "Provider Documentation" section prepared by Zbigniew Martinez. . Stroke Core Measures Reason no t-PA for Stroke: Treatment not indicated Reason no antithrom by day 2: Treatment provided - N/A Reason no antithrom at D/C: Treatment provided - N/A Reason no statin at D/C: Treatment provided - N/A Reason no anticoag w/a fib: Treatment provided - N/A VTE Core Measure Inpt VTE Proph given/why not?: SCD's, Contraindicated (THROMBOCYTOPENIA)
[2017-03-06] MEDS ORDERED: POTA99TA PO (18:10)
[2017-03-06] MEDS ORDERED: FURO-85 PO (18:10)
[2017-03-06] MEDS ORDERED: ATEN50TA8 PO (18:10)
[2017-03-07] MEDS ORDERED: GABAPENTIN 600MG Q12H DOSE PO SCH (12:00)
[2017-03-09] MEDS ORDERED: GABAPENTIN 600MG X1 DOSE PO SCH
== END 2017-03-06 18:00 | disposition home health service (06) | DRG 65 ==
LOC: C.EDB 15:13 → C.2T 19:06 → ENRESERV 19:20
PROVIDERS: ADMIT Hospitalist; ATTEND Internal Medicine
DX: I63.9 Cerebral infarction, unspecified (principal); I16.1 Hypertensive emergency; R20.0 Anesthesia of skin; R29.701 NIHSS score 1; D69.59 Other secondary thrombocytopenia; R31.29 Other microscopic hematuria; I10 Essential (primary) hypertension; K70.30 Alcoholic cirrhosis of liver without ascites; F10.10 Alcohol abuse, uncomplicated; Z79.899 Other long term (current) drug therapy; Z82.49 Family history of ischemic heart disease and other diseases of the circulatory system